=== PATIENT | male | born 1980 | race Caucasian/White ===

== ENCOUNTER 2017-05-13 20:43 | Inpatient (IN) | payer OTHER ==
--- NOTE | 2017-05-13 21:48 | PDOC ---
Rapid Medical Evaluation Chief Complaint: Respiratory Distress Time Seen by Provider: 05/13/17 21:43 Medical Evaluation: Allergies Allergy/AdvReac Type Severity Reaction Status Date / Time No Known Allergies Allergy Verified 05/13/17 21:44 05/13/17 21:44 I Have performed a brief in-person evaluation of this patient. c/o : pneumonia , cough and pain x right side, + night sweats, weightloss, fever x 1 month pertinent physical exam findings: Patient alert, fine rales on exam. I have ordered the following: blood culture, cbc, cmp, lactic acid The patient will proceed to the ED for further evaluation. 05/13/17 21:55
[2017-05-13 22:17] LABS: BASOPHIL 0.6 % (0-2.0); EOSINOPHIL 0.1 % (0-4.5); MCH 28.3 pg (25.7-33.7); MCHC 33.4 g/dl (32.0-35.9); MEAN CELL VOLUME 84.7 fl (80-96); MEAN PLT VOLUME 7.7 fl (7.5-11.1); NEUTROPHILS 87.3 % (42.8-82.8); PLATELET COUNT 381 K/MM3 (134-434); RDW 12.4 % (11.9-15.9); WHITE BLOOD COUNT 16.3 K/mm3 (4.0-10.0)
[2017-05-13 22:41] LABS: ALBUMIN 3.5 g/dl (3.4-5.0); ANION GAP 13 (8-16); CALCIUM 9.1 mg/dL (8.5-10.1); CO2 24 mmol/L (21-32); CREATININE 0.9 mg/dL (0.7-1.3); GLUCOSE,RANDOM 119 mg/dL (74-106); SGOT/AST 18 U/L (15-37); SGPT/ALT 48 U/L (12-78)
[2017-05-13 22:43] LABS: ALK PHOS 140 U/L (45-117); BILIRUBIN,TOTAL 0.7 mg/dL (0.2-1.0); TOT PROT 8.3 g/dl (6.4-8.2)
[2017-05-13] MEDS ORDERED: SODIUM CHLORIDE 0.9% 1000 ML INFUS.BAG IV STA (22:58)
[2017-05-13] MEDS ORDERED: SODIUM CHLORIDE 0.9% 1000 ML INFUS.BAG IV PRN (22:58)
[2017-05-13] MEDS ORDERED: ACETAMINOPHEN 1000 MG/100 ML VIAL (NON FORMULARY) IVPB ONE (23:03)
--- NOTE | 2017-05-13 23:20 | PDOC ---
History of Present Illness - General Chief Complaint: Respiratory Distress Stated Complaint: COLD SYMPTOMS Time Seen by Provider: 05/13/17 21:43 History Source: Patient - History of Present Illness Initial Comments: 05/13/17 23:15 36 year old male with Fever on and off for 1 month With cough and congestion, patient reports night sweats, increased cough and weight loss. Patient has completed courses of Zithromax and Levaquin with no relief in cough or fever. Patient reports that he was diagnosed with pneumonia by his primary doctor doctor. Denies hemoptysis, shortness of breath. Past History - Past Medical History Allergies/Adverse Reactions: Allergies Allergy/AdvReac Type Severity Reaction Status Date / Time No Known Allergies Allergy Verified 05/13/17 21:44 Home Medications: Ambulatory Orders NK [No Known Home Medication] 05/14/17 - Suicide/Smoking/Psychosocial Hx Smoking History: Never smoked Have you smoked in the past 12 months: No Information on smoking cessation initiated: No Hx Alcohol Use: Yes Drug/Substance Use Hx: No Review of Systems - Review of Systems Able to Perform ROS?: Yes Is the patient limited Vietnamese proficient: No Constitutional: Yes: Diaphoresis, Fever, Night Sweats, Unexplained wgt Loss Respiratory: Yes: Cough. No: Symptoms reported, See HPI, Orthopnea, Shortness of Breath, SOB with Exertion, SOB at Rest, Stridor, Wheezing, Productive cough, Hemoptysis, Other Cardiac (ROS): No: Symptoms Reported, See HPI, Chest Pain, Edema, Irregular Heart Rate, Lightheadedness, Palpitations, Syncope, Chest Tightness, Other ABD/GI: No: Symptoms Reported, See HPI, Abdominal Distended, Abd. Pain w/ defecation, Blood Streaked Bowels, Constipated, Diarrhea, Difficulty Swallowing , Nausea, Poor Appetite, Poor Fluid Intake, Rectal Bleeding, Vomiting, Indigestion, Abdominal cramping, Tarry Stools, Other : No: Symptoms Reported, See HPI, Burning, Dysuria, Discharge, Frequency, Flank Pain, Hematuria, Incontinence, Pain, Urgency, Testicular Mass, Testicular Swelling, Lesions, Testicular Pain, Other Neurological: No: Symptoms reported, See HPI, Headache, Numbness, Paresthesia, Pre-Existing Deficit, Seizure, Tingling, Tremors, Weakness, Unsteady Gait, Ataxia, Dizziness, Other *Physical Exam - Vital Signs Last Vital Signs Temp Pulse Resp BP Pulse Ox 103.1 F H 133 H 14 139/81 95 05/13/17 21:44 05/13/17 21:44 05/13/17 21:44 05/13/17 21:44 05/13/17 21:44 - Physical Exam General Appearance: Yes: Appropriately Dressed Respiratory/Chest: positive: Other (fine rales and decreased aeration to right posterior. ) Cardiovascular: positive: Regular Rhythm, Tachycardia Gastrointestinal/Abdominal: positive: Normal Bowel Sounds, Soft Extremity: positive: Normal Capillary Refill, Normal Inspection, Normal Range of Motion Integumentary: positive: Normal Color, Dry, Warm Neurologic: positive: Fully Oriented, Alert, Normal Mood/Affect ED Treatment Course - LABORATORY CBC & Chemistry Diagram: 05/15/17 05:10 05/15/17 05:10 - ADDITIONAL ORDERS Additional order review: Laboratory Results 05/13/17 05/13/17 22:00 22:00 Sodium 135 L Potassium 3.8 Chloride 98 Carbon Dioxide 24 Anion Gap 13 BUN 11 Creatinine 0.9 Creat Clearance w eGFR > 60 Random Glucose 119 H Lactic Acid 0.9 Calcium 9.1 Total Bilirubin 0.7 AST 18 ALT 48 Alkaline Phosphatase 140 H Total Protein 8.3 H Albumin 3.5 05/13/17 22:00 RBC 4.78 MCV 84.7 MCHC 33.4 RDW 12.4 MPV 7.7 Neutrophils % 87.3 H Lymphocytes % 6.4 L Monocytes % 5.6 Eosinophils % 0.1 Basophils % 0.6 - RADIOLOGY Radiology Studies Ordered: Category Date Time Status CHEST X-RAY PORTABLE* [RAD] Stat Radiology 05/13/17 22:58 Ordered Chest X-Ray Result: Pneumonia (right patchy infiltrates: official read pending) Medical Decision Making - Medical Decision Making 05/13/17 23:21 A: Pna vs. TB vs. sepsis P: blood culture cbc cmp lactic acid ABG ISOlate. 05/14/17 00:15 Dr. Glen Roberts pagenathan. 05/14/17 01:30 Dr. glen garza x3. Hospitalist messaged. 05/14/17 02:37 Dr. Salas covering for Dr. Alejandra garza. no answer. patient admitted under hospitalist. 05/14/17 03:33 patient signed out to Saray Miramontes [employer] TECHNICIAN *DC/Admit/Observation/Transfer Diagnosis at time of Disposition: SIRS (systemic inflammatory response syndrome) Pneumonia Qualifiers: Pneumonia type: due to unspecified organism Laterality: bilateral Lung location : lower lobe of lung Qualified Code(s): J18.9 - Pneumonia, unspecified organism - Discharge Dispostion Admit: Yes - Referrals - Patient Instructions - Post Discharge Activity
[2017-05-13] MEDS ORDERED: ACETAMINOPHEN INJECTION 100 ML IVPB ONE (23:38)
[2017-05-13 23:42] LABS: ARTERIAL BLD GAS O2 SATURATION 96.6 % (90-98.9); ARTERIAL BLOOD GAS BASE EXCESS 2.1 meq/l (-2-2); ARTERIAL BLOOD GAS HCO3 24.3 meq/L (22-26); ARTERIAL BLOOD GAS PO2 77.2 mmHg (80-100)
[2017-05-13 23:57] LABS: ALLENS TEST POSITIVE; ART PUNCT SITE RIGHT RADIAL; PT. ON O2? NO
[2017-05-14] MEDS ORDERED: VANCOMYCIN 1,250 MG in DEXTROSE 5%-WATER - 250 ML IVPB ONE (01:03)
[2017-05-14] MEDS ORDERED: PIPERACILLIN/TAZOB 4.5 GM/100 ML PRE-DOCKED IVPB ONE (01:15)
[2017-05-14] MEDS ORDERED: VANCOMYCIN 1 GRAM (PRE-DOCKED) 1,000 MG/250 ML BAG IVPB ONE (01:21)
[2017-05-14] MEDS ORDERED: PIPERACILLIN/TAZOB 4.5 GM 4.5 GM/100 ML BAG IVPB ONE (01:21)
[2017-05-14] MEDS ORDERED: ALBUTEROL SO4 2.5/IPRATROPIUM 0.5 INH SOL 3 ML VIAL.NEB. NEB ONE ×3 (03:20→09:39)
--- NOTE | 2017-05-14 03:36 | HP ---
CHIEF COMPLAINT: Cough, Fever, Night Sweats, Weight Loss PCP: Dr. Dior Roberts HISTORY OF PRESENT ILLNESS: This is a 36 y/o man with no significant PMHx. Who presents to the ED with fever , cough and congestion x 1 month. Patient also reports having night sweats and weight loss. He reports being treated by his PCP with Azithromycin and recently completed Levaquin with no resolve. Patient denies recent travel or exposure to sick contacts. He resides in a apartment with his S.O. in a monogamous heterosexual relationship. Patient reports having a PPD 2 weeks ago for work- result negative. Patient reports being tested for HIV routine earlier this year - negative. He is unsure about his Hep B vaccine status. Patient denies CP, AP, N/V/D, constipation, dysuria ER course was notable for: (1) SIRS Criteria: T Max 103.1, P 133, WBC 16.3 with L shift (2) Chest Xray image- patchy infiltrates (3) Recent Travel: None PAST MEDICAL HISTORY: None PAST SURGICAL HISTORY: None Social History: Smoking: Never Alcohol: Socially Drugs: Denies Lives with S.O. Family History: Allergies No Known Allergies Allergy (Verified 05/13/17 21:44) HOME MEDICATIONS: REVIEW OF SYSTEMS CONSTITUTIONAL: fever, chills, malaise, weight change, night sweats Absent: diaphoresis, generalized weakness, loss of appetite, HEENT: Absent: rhinorrhea, nasal congestion, throat pain, throat swelling, difficulty swallowing, mouth swelling, ear pain, eye pain, visual changes CARDIOVASCULAR: Absent: chest pain, syncope, palpitations, irregular heart rate, lightheadedness , peripheral edema RESPIRATORY: cough, Absent: shortness of breath, dyspnea with exertion, orthopnea, wheezing, stridor , hemoptysis GASTROINTESTINAL: Absent: abdominal pain, abdominal distension, nausea, vomiting, diarrhea, constipation, melena, hematochezia GENITOURINARY: Absent: dysuria, frequency, urgency, hesitancy, hematuria, flank pain, genital pain MUSCULOSKELETAL: Absent: myalgia, arthralgia, joint swelling, back pain, neck pain SKIN: Absent: rash, itching, pallor HEMATOLOGIC/IMMUNOLOGIC: Absent: easy bleeding, easy bruising, lymphadenopathy, frequent infections ENDOCRINE:unexplained weight loss Absent: unexplained weight gain, heat intolerance, cold intolerance NEUROLOGIC: Absent: headache, focal weakness or paresthesias, dizziness, unsteady gait, seizure, mental status changes, bladder or bowel incontinence PSYCHIATRIC: Absent: anxiety, depression, suicidal or homicidal ideation, hallucinations. PHYSICAL EXAMINATION Vital Signs - 24 hr 05/13/17 21:44 Temperature 103.1 F H Pulse Rate 133 H Respiratory 14 Rate Blood Pressure 139/81 O2 Sat by Pulse 95 Oximetry (%) GENERAL: Awake, alert, and fully oriented, in no acute distress. HEAD: Normal with no signs of trauma. EYES: Pupils equal, round and reactive to light, extraocular movements intact, sclera anicteric, conjunctiva clear. No lid lag. EARS, NOSE, THROAT: Ears normal, nares patent, oropharynx clear without exudates . Dry mucous membranes. NECK: Normal range of motion, supple without lymphadenopathy, JVD, or masses. No nuchal rigidity LUNGS: Breath sounds diminished at bases, with scattered wheeze. No accessory muscle use. HEART: Regular rate and rhythm, normal S1 and S2 without murmur, rub or gallop. ABDOMEN: Soft, nontender, not distended, normoactive bowel sounds, no guarding, no rebound, no masses. No hepatomegaly or splenomegaly. MUSCULOSKELETAL: Normal range of motion at all joints. No bony deformities or tenderness. No CVA tenderness. UPPER EXTREMITIES: 2+ pulses, warm, well-perfused. No cyanosis. No clubbing. No peripheral edema. LOWER EXTREMITIES: 2+ pulses, warm, well-perfused. No calf tenderness. No peripheral edema. NEUROLOGICAL: Cranial nerves II-XII intact. Normal speech. Normal gait. PSYCHIATRIC: Cooperative. Good eye contact. Appropriate mood and affect. SKIN: Warm, dry, normal turgor, no rashes or lesions noted, normal capillary refill. Laboratory Results - last 24 hr 05/13/17 05/13/17 05/13/17 22:00 22:00 22:00 WBC 16.3 H RBC 4.78 Hgb 13.5 Hct 40.5 MCV 84.7 MCH 28.3 MCHC 33.4 RDW 12.4 Plt Count 381 MPV 7.7 Neutrophils % 87.3 H Lymphocytes % 6.4 L Monocytes % 5.6 Eosinophils % 0.1 Basophils % 0.6 Anticoagulation Therapy Puncture Site ABG pH ABG pCO2 at Pt Temp ABG pO2 at Pt Temp ABG HCO3 ABG O2 Sat (Measured) ABG O2 Content ABG Base Excess Adolph Test O2 Delivery Device Oxygen Flow Rate Vent Mode Vent Rate Mechanical Rate Pressure Support Vent Sodium 135 L Potassium 3.8 Chloride 98 Carbon Dioxide 24 Anion Gap 13 BUN 11 Creatinine 0.9 Creat Clearance w eGFR > 60 Random Glucose 119 H Lactic Acid 0.9 Calcium 9.1 Total Bilirubin 0.7 AST 18 ALT 48 Alkaline Phosphatase 140 H Total Protein 8.3 H Albumin 3.5 05/13/17 23:25 WBC RBC Hgb Hct MCV MCH MCHC RDW Plt Count MPV Neutrophils % Lymphocytes % Monocytes % Eosinophils % Basophils % Anticoagulation Therapy Y Puncture Site Right radial ABG pH 7.50 H ABG pCO2 at Pt Temp 31.4 L ABG pO2 at Pt Temp 77.2 L ABG HCO3 24.3 ABG O2 Sat (Measured) 96.6 ABG O2 Content 17.8 ABG Base Excess 2.1 H Adolph Test Positive O2 Delivery Device Y Oxygen Flow Rate No Vent Mode Y Vent Rate Y Mechanical Rate Y Pressure Support Vent Y Sodium Potassium Chloride Carbon Dioxide Anion Gap BUN Creatinine Creat Clearance w eGFR Random Glucose Lactic Acid Calcium Total Bilirubin AST ALT Alkaline Phosphatase Total Protein Albumin ASSESSMENT/PLAN: This is a 36 y.o man with no past medical history presents to ED with fever, cough, weight loss x 1 month, Failed Out Patient Therapy ABX. Admit to M/S SIRS , Pneumonia, r/o TB for further evaluation of their emergent condition. FEN Tolerates PO Fluids Replete lytes prn Regular Diet Code Status: Full Code Dispo: Requires Inpatient Care Problem List - Problem (1) SIRS (systemic inflammatory response syndrome) Assessment/Plan: - r/o Pneumonia vs TB vs Neoplasm - T Max 103.1, P 133, WBC 16.3 - Blood Cultures-pending - Urine Culture-pending - Sputum Culture - AFB r/o TB - Isolation Precautions- airborne - PPD test - Zosyn, Vancomycin, NS bolus given in ED, will continue - Appreciate ID Consult - Repeat CBC, BMP in am - Monitor vitals Code(s): R65.10 - SIRS OF NON-INFECTIOUS ORIGIN W/O ACUTE ORGAN DYSFUNCTION (2) Pneumonia Assessment/Plan: - Failed Outpatient Therapy - Will treat for CAP - Chest Xray image- patchy bilateral infiltrates - Given Zosyn, Vancomycin in ED, will continue for broad spectrum coverage- pending BC reports - Appreciate ID and Pulm consults - O2 - Duonebs - Urine Legionella - Monitor vitals Code(s): J18.9 - PNEUMONIA, UNSPECIFIED ORGANISM Qualifiers: Pneumonia type: due to unspecified organism Laterality: bilateral Lung location: lower lobe of lung Qualified Code(s): J18.9 - Pneumonia, unspecified organism (3) DVT prophylaxis Assessment/Plan: - OOB - Heparin SQ Code(s): [id number] - Visit type - Emergency Visit Emergency Visit: Yes ED Registration Date: 05/14/17 Care time: The patient presented to the Emergency Department on the above date and was hospitalized for further evaluation of their emergent condition. - New Patient This patient is new to me today: Yes Date on this admission: 05/14/17 - Critical Care Critical Care patient: No
[2017-05-14 06:20] LABS: TROPONIN I < 0.02 ng/ml (0.00-0.05)
[2017-05-14] MEDS: HEPARIN NA (PORCINE) 5,000 UNITS/ML 1ML VIAL SQ SCH ×3 (07:06→21:57)
[2017-05-14 07:43] LABS: CPK 105 IU/L (39-308)
[2017-05-14] MEDS ORDERED: ACETAMINOPHEN 325 MG TABLET (FP) ONE (09:38)
[2017-05-14] MEDS: ACETAMINOPHEN 325 MG TABLET (FP) PO PRN ×2 (09:55→17:41)
[2017-05-14] MEDS: ALBUTEROL SO4 2.5/IPRATROPIUM 0.5 INH SOL 3 ML VIAL.NEB. NEB PRN (09:55)
[2017-05-14] MEDS ORDERED: PIPERACILLIN/TAZOB 4.5 GM 4.5 GM in DEXTROSE 5%-WATER - 100 ML IVPB ONE (10:00)
--- NOTE | 2017-05-14 11:33 | CON.ID ---
Consult Consult Specialty:: infectious diseases Reason for Consultation:: cough pneumonia - History of Present Illness Chief Complaint: cough.sob History of Present Illness: 36 y/o man with no significant PMHx. Who presents to the ED with fever, cough and congestion x 1 month. Patient also reports having night sweats and weight loss. He reports being treated by his PCP with Azithromycin and recently completed Levaquin with no resolve. patient is from [facility] originally and is a traveling construction superintendent . He is a non smoker and denies drugs. Paient mentions that he is having scant sputum production and no hemoptysis' Patient reports being tested for HIV routine earlier this year- negative. He is unsure about his Hep B vaccine status. He does not know that if he had ppd done before - History Source History Provided By: Patient Limitations to Obtaining History: No Limitations - Alcohol/Substance Use Hx Alcohol Use: Yes - Smoking History Smoking history: Never smoked Have you smoked in the past 12 months: No Home Medications - Allergies Allergies/Adverse Reactions: Allergies Allergy/AdvReac Type Severity Reaction Status Date / Time No Known Allergies Allergy Verified 05/13/17 21:44 - Home Medications Home Medications: Ambulatory Orders NK [No Known Home Medication] 05/14/17 Review of Systems - Review of Systems Constitutional: reports: Unintentional Wgt. Loss, Other (sweats) Eyes: reports: No Symptoms Cardiovascular: reports: No Symptoms Respiratory: reports: Cough, Other Gastrointestinal: reports: No Symptoms Genitourinary: reports: No Symptoms Musculoskeletal: reports: No Symptoms Integumentary: reports: No Symptoms Neurological: reports: No Symptoms Endocrine: reports: No Symptoms Hematology/Lymphatic: reports: No Symptoms Psychiatric: reports: No Symptoms Physical Exam Vital Signs: Vital Signs Temperature 101.7 F H 05/14/17 09:56 Pulse Rate 102 H 05/14/17 09:56 Respiratory Rate 18 05/14/17 09:56 Blood Pressure 129/89 05/14/17 09:56 O2 Sat by Pulse Oximetry (%) 98 05/14/17 09:56 Constitutional: Yes: Well Nourished, Calm, Mild Distress Eyes: Yes: Conjunctiva Clear HENT: Yes: Atraumatic Neck: Yes: Supple, Trachea Midline Cardiovascular: Yes: Regular Rate and Rhythm Respiratory: Yes: Cough, On Nasal O2, Rhonchi, SOB Gastrointestinal: Yes: Normal Bowel Sounds, Soft Musculoskeletal: Yes: WNL Extremities: Yes: WNL Neurological: Yes: Alert, Oriented Psychiatric: Yes: Alert, Oriented Labs: CBC, BMP 05/13/17 22:00 05/13/17 22:00 Imaging - Results Chest X-ray: Report Reviewed, Image Reviewed Assessment/Plan patient wiht his back ground needs work up of Tb which already has been intitated sputum being send also patient has failed out patient treatment Problem List - Problems (1) Pneumonia Code(s): J18.9 - PNEUMONIA, UNSPECIFIED ORGANISM Qualifiers: Pneumonia type: due to unspecified organism Laterality: bilateral Lung location: lower lobe of lung Qualified Code(s): J18.9 - Pneumonia, unspecified organism (2) SIRS (systemic inflammatory response syndrome) Code(s): R65.10 - SIRS OF NON-INFECTIOUS ORIGIN W/O ACUTE ORGAN DYSFUNCTION plan will start on abx incentive fabiola ct scan await for all reports rest as per primary team
[2017-05-14] MEDS ORDERED: PIPERACILLIN/TAZOB 3.375 GM 3.375 GM/50 ML BAG IVPB ONE (11:49)
[2017-05-14] MEDS: PIPERACILLIN/TAZOB 3.375 GM 3.375 GM in DEXTROSE 5%-WATER - 50 ML IVPB SCH ×2 (12:17→17:41)
[2017-05-14] MEDS ORDERED: VANCOMYCIN 1,000 MG in DEXTROSE 5%-WATER - 250 ML IVPB ONE ×2 (13:00→15:30)
[2017-05-14] MEDS ORDERED: PNEUMOC 13-VAL CONJ-DIP CRM/PF 0.5 ML DISP.SYRIN IM ONE (14:00)
[2017-05-14 14:07] VITALS: BMI 30.4
[2017-05-14] MEDS ORDERED: PIPERACILLIN/TAZOB 4.5 GM/100 ML PREMIX BAG IVPB SCH (15:00)
[2017-05-15] MEDS ORDERED: PT OWN MED DRAWER 7, Y5N ONE ×4 (01:26→17:45)
[2017-05-15] MEDS: PIPERACILLIN/TAZOB 3.375 GM 3.375 GM in DEXTROSE 5%-WATER - 50 ML IVPB SCH ×3 (01:38→17:18)
[2017-05-15] MEDS: ACETAMINOPHEN 325 MG TABLET (FP) PO PRN ×3 (01:48→16:54)
[2017-05-15] MEDS: HEPARIN NA (PORCINE) 5,000 UNITS/ML 1ML VIAL SQ SCH ×3 (06:04→21:45)
[2017-05-15 07:08] LABS: BASOPHIL 0.8 % (0-2.0); MCH 28.2 pg (25.7-33.7); MCHC 32.9 g/dl (32.0-35.9); MEAN CELL VOLUME 85.8 fl (80-96); NEUTROPHILS 71.3 % (42.8-82.8); PLATELET COUNT 274 K/MM3 (134-434); RDW 12.5 % (11.9-15.9); WHITE BLOOD COUNT 8.7 K/mm3 (4.0-10.0)
[2017-05-15 07:41] LABS: ALBUMIN 2.9 g/dl (3.4-5.0); ANION GAP 11 (8-16); CALCIUM 9.2 mg/dL (8.5-10.1); CO2 25 mmol/L (21-32); CREATININE 0.8 mg/dL (0.7-1.3); GLUCOSE,RANDOM 93 mg/dL (74-106); SGOT/AST 28 U/L (15-37); SGPT/ALT 50 U/L (12-78)
[2017-05-15 07:44] LABS: ALK PHOS 137 U/L (45-117); BILIRUBIN,TOTAL 0.4 mg/dL (0.2-1.0)
--- NOTE | 2017-05-15 10:14 | CON.PULM ---
Consult Consult Specialty:: PULMONARY Referred by:: FELIPE Reason for Consultation:: PNEUMONIA - History of Present Illness Chief Complaint: COUGH/FEVER/WEIGHT LOSS History of Present Illness: 36 year old male with Fever on and off for 1 month With cough and congestion, patient reports night sweats, increased cough and weight loss. Patient has completed courses of Zithromax and Levaquin with no relief in cough or fever. Patient reports that he was diagnosed with pneumonia by his primary doctor doctor. Denies hemoptysis, shortness of breath. No sick contacts. 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 Cardio/Vascular: No: AFIB Pulmonary: No: Asthma Gastrointestinal: No: Ascites Hepatobiliary: No: Cirrhosis Renal/: No: Renal Failure Heme/Onc: No: Anemia Infectious Disease: No: AIDS Psych: No: Addictions Musculoskeletal: No: Bursitis Rheumatology: No: Fibromyalgia ENT: No: Allergic Rhinitis Endocrine: No: Licking's Disease - Alcohol/Substance Use Hx Alcohol Use: Yes - Smoking History Smoking history: Never smoked Have you smoked in the past 12 months: No Home Medications - Allergies Allergies/Adverse Reactions: Allergies Allergy/AdvReac Type Severity Reaction Status Date / Time No Known Allergies Allergy Verified 05/13/17 21:44 - Home Medications Home Medications: Ambulatory Orders NK [No Known Home Medication] 05/14/17 Family Disease History - Family Disease History Family History: Unremarkable Review of Systems - Review of Systems Constitutional: reports: Chills, Diaphoresis, Fever, Unintentional Wgt. Loss Cardiovascular: denies: Chest Pain Respiratory: reports: Cough, SOB on Exertion. denies: Hemoptysis Physical Exam Vital Sings: Vital Signs Temperature 102.6 F H 05/15/17 02:10 Pulse Rate 104 H 05/15/17 02:10 Respiratory Rate 20 05/15/17 02:10 Blood Pressure 122/71 05/15/17 02:10 O2 Sat by Pulse Oximetry (%) 97 05/14/17 22:00 Constitutional: Yes: Calm Eyes: Yes: EOM Intact HENT: Yes: Normocephalic Neck: Yes: Trachea Midline Cardiovascular: Yes: Regular Rate and Rhythm Respiratory: Yes: Rhonchi Gastrointestinal: Yes: Normal Bowel Sounds Edema: No Labs: CBC, BMP 05/15/17 05:10 11/18/17 05:10 ABG Results ABG pH 7.50 (7.35-7.45) H 05/13/17 23:25 ABG pCO2 at Pt Temp 31.4 mmHg (35-45) L 05/13/17 23:25 ABG pO2 at Pt Temp 77.2 mmHg (80-100) L 05/13/17 23:25 ABG HCO3 24.3 meq/L (22-26) 05/13/17 23:25 ABG O2 Sat (Measured) 96.6 % (90-98.9) 05/13/17 23:25 ABG O2 Content 17.8 % vol (15-22) 05/13/17 23:25 ABG Base Excess 2.1 meq/l (-2-2) H 05/13/17 23:25 rest reviewed Imaging - Results Chest X-ray: Report Reviewed, Image Reviewed Problem List - Problems (1) Pneumonia Code(s): J18.9 - PNEUMONIA, UNSPECIFIED ORGANISM Qualifiers: Pneumonia type: due to unspecified organism Laterality: bilateral Lung location: lower lobe of lung Qualified Code(s): J18.9 - Pneumonia, unspecified organism (2) SIRS (systemic inflammatory response syndrome) Code(s): R65.10 - SIRS OF NON-INFECTIOUS ORIGIN W/O ACUTE ORGAN DYSFUNCTION Assessment/Plan CABP likely however must r/o acid fast disease agree with current line of treatment have ordered urine antigens/sputum gram stain/quant gold/would replant ppd continue isolation and antibiotics may need ct chest when clinically stable Consuelo MAGALLANES MD
--- NOTE | 2017-05-15 11:56 | PN ---
Progress Note, Physician Chief Complaint: awake alert family bedsid ewith masks on patient coughing explained he was in [place] and lived in [place] for 6 months where he was surrounded by very sick people. - Current Medication List Current Medications: Active Medications Acetaminophen (Tylenol -) 650 mg PO Q6H PRN PRN Reason: FEVER OR PAIN Last Admin: 05/15/17 01:48 Dose: 650 mg Albuterol/Ipratropium (Duoneb -) 1 amp NEB Q6H PRN PRN Reason: SHORTNESS OF BREATH Last Admin: 05/14/17 09:55 Dose: 1 amp Heparin Sodium (Porcine) (Heparin -) 5,000 unit SQ TID ELIZABETH Last Admin: 05/15/17 06:04 Dose: 5,000 unit Vancomycin HCl 1,000 mg/ (Dextrose) 250 mls @ 200 mls/hr IVPB Q12H ELIZABETH Piperacillin Sod/Tazobactam (Sod 3.375 gm/ Dextrose) 50 mls @ 100 mls/hr IVPB Q8H-IV ELIZABETH PRN Reason: Protocol Last Admin: 05/15/17 09:59 Dose: 100 mls/hr Sodium Chloride (Normal Saline -) 200 ml IV Q20M PRN PRN Reason: MAP<65mm Hg OR SBP <90 Last Admin: 05/14/17 01:19 Dose: 200 ml - Objective Vital Signs: Vital Signs Temperature 100.6 F H 05/15/17 10:00 Pulse Rate 100 H 05/15/17 10:00 Respiratory Rate 20 05/15/17 10:00 Blood Pressure 116/83 05/15/17 10:00 O2 Sat by Pulse Oximetry (%) 97 05/15/17 10:00 Constitutional: Yes: Mild Distress Eyes: Yes: WNL HENT: Yes: WNL Neck: Yes: WNL Cardiovascular: Yes: WNL Respiratory: Yes: Cough, Wheezes Gastrointestinal: Yes: WNL Genitourinary: Yes: WNL Musculoskeletal: Yes: WNL Extremities: Yes: WNL Edema: No Peripheral Pulses WNL: Yes Integumentary: Yes: WNL Wound/Incision: Yes: Clean/Dry Neurological: Yes: WNL ...Motor Strength: WNL Psychiatric: Yes: WNL Labs: CBC, BMP 05/15/17 05:10 05/15/17 05:10 Problem List - Problems (1) Pneumonia Code(s): J18.9 - PNEUMONIA, UNSPECIFIED ORGANISM Qualifiers: Pneumonia type: due to unspecified organism Laterality: bilateral Lung location: lower lobe of lung Qualified Code(s): J18.9 - Pneumonia, unspecified organism (2) SIRS (systemic inflammatory response syndrome) Code(s): R65.10 - SIRS OF NON-INFECTIOUS ORIGIN W/O ACUTE ORGAN DYSFUNCTION Assessment/Plan KEEP ON ISOLATION NEBS 02 SUPPORT PULMONARY AND ID FOLLOW UP CHECKING AFB SPUTUM PPD ORDERED CT SCAN WHEN STABLE IV ABX
[2017-05-15] MEDS ORDERED: TUBERCULIN PPD 5 TU/0.1ML SYRINGE (IN PATIENT USE ONLY) ID ONE (14:45)
--- NOTE | 2017-05-15 17:05 | PN ---
Progress Note, Physician History of Present Illness: stable mentions he is producing more sputum today says coughing episodes more and worse - Current Medication List Current Medications: Active Medications Acetaminophen (Tylenol -) 650 mg PO Q6H PRN PRN Reason: FEVER OR PAIN Last Admin: 05/15/17 01:48 Dose: 650 mg Albuterol/Ipratropium (Duoneb -) 1 amp NEB Q6H PRN PRN Reason: SHORTNESS OF BREATH Last Admin: 05/14/17 09:55 Dose: 1 amp Heparin Sodium (Porcine) (Heparin -) 5,000 unit SQ TID ELIZABETH Last Admin: 05/15/17 14:48 Dose: 5,000 unit Vancomycin HCl 1,000 mg/ (Dextrose) 250 mls @ 200 mls/hr IVPB Q12H ELIZABETH Piperacillin Sod/Tazobactam (Sod 3.375 gm/ Dextrose) 50 mls @ 100 mls/hr IVPB Q8H-IV ELIZABETH PRN Reason: Protocol Last Admin: 05/15/17 09:59 Dose: 100 mls/hr Sodium Chloride (Normal Saline -) 200 ml IV Q20M PRN PRN Reason: MAP<65mm Hg OR SBP <90 Last Admin: 05/14/17 01:19 Dose: 200 ml - Objective Vital Signs: Vital Signs Temperature 98.3 F 05/15/17 15:46 Pulse Rate 80 05/15/17 15:46 Respiratory Rate 20 05/15/17 15:46 Blood Pressure 134/69 05/15/17 15:46 O2 Sat by Pulse Oximetry (%) 97 05/15/17 10:00 Constitutional: Yes: Mild Distress Cardiovascular: Yes: Regular Rate and Rhythm Respiratory: Yes: Cough, Rhonchi Gastrointestinal: Yes: Normal Bowel Sounds, Soft Musculoskeletal: Yes: WNL Extremities: Yes: WNL Neurological: Yes: Alert, Oriented Psychiatric: Yes: Alert, Oriented Labs: CBC, BMP 05/15/17 05:10 05/15/17 05:10 Assessment/Plan ppd placed Problem List - Problems (1) Pneumonia Code(s): J18.9 - PNEUMONIA, UNSPECIFIED ORGANISM Qualifiers: Pneumonia type: due to unspecified organism Laterality: bilateral Lung location: lower lobe of lung Qualified Code(s): J18.9 - Pneumonia, unspecified organism (2) SIRS (systemic inflammatory response syndrome) Code(s): R65.10 - SIRS OF NON-INFECTIOUS ORIGIN W/O ACUTE ORGAN DYSFUNCTION plan continue abx incentive fabiola ct scan await for all reports rest as per primary team
[2017-05-15] MEDS: VANCOMYCIN 1,250 MG in DEXTROSE 5%-WATER - 250 ML IVPB SCH (17:55)
[2017-05-16] MEDS: ALBUTEROL SO4 2.5/IPRATROPIUM 0.5 INH SOL 3 ML VIAL.NEB. NEB PRN (00:44)
[2017-05-16] MEDS ORDERED: PT OWN MED DRAWER 7, Y5N ONE ×2 (00:59→16:46)
[2017-05-16] MEDS: PIPERACILLIN/TAZOB 3.375 GM 3.375 GM in DEXTROSE 5%-WATER - 50 ML IVPB SCH ×3 (01:01→17:43)
[2017-05-16] MEDS: HEPARIN NA (PORCINE) 5,000 UNITS/ML 1ML VIAL SQ SCH ×3 (06:05→21:20)
--- NOTE | 2017-05-16 11:10 | PN ---
Progress Note, Physician Chief Complaint: AWAKE ALERT COUGHING - Current Medication List Current Medications: Active Medications Acetaminophen (Tylenol -) 650 mg PO Q6H PRN PRN Reason: FEVER OR PAIN Last Admin: 05/15/17 16:54 Dose: 650 mg Albuterol/Ipratropium (Duoneb -) 1 amp NEB Q6H PRN PRN Reason: SHORTNESS OF BREATH Last Admin: 05/16/17 00:44 Dose: 1 amp Heparin Sodium (Porcine) (Heparin -) 5,000 unit SQ TID [facility] Last Admin: 05/16/17 06:05 Dose: 5,000 unit Piperacillin Sod/Tazobactam (Sod 3.375 gm/ Dextrose) 50 mls @ 100 mls/hr IVPB Q8H-IV [facility] PRN Reason: Protocol Last Admin: 05/16/17 01:01 Dose: 100 mls/hr Vancomycin HCl 1,250 mg/ (Dextrose) 250 mls @ 250 mls/hr IVPB DAILY@1800 [facility] PRN Reason: Protocol Last Admin: 05/15/17 17:55 Dose: 250 mls/hr Sodium Chloride (Normal Saline -) 200 ml IV Q20M PRN PRN Reason: MAP<65mm Hg OR SBP <90 Last Admin: 05/14/17 01:19 Dose: 200 ml - Objective Vital Signs: Vital Signs Temperature 99.1 F 05/16/17 01:43 Pulse Rate 107 H 05/16/17 01:43 Respiratory Rate 20 05/16/17 01:43 Blood Pressure 120/69 05/16/17 01:43 O2 Sat by Pulse Oximetry (%) 95 05/15/17 21:00 Constitutional: Yes: Mild Distress Eyes: Yes: WNL HENT: Yes: WNL Neck: Yes: WNL Cardiovascular: Yes: WNL Respiratory: Yes: Cough, Rhonchi Gastrointestinal: Yes: WNL Genitourinary: Yes: WNL Musculoskeletal: Yes: WNL Extremities: Yes: WNL Edema: No Peripheral Pulses WNL: Yes Integumentary: Yes: WNL Wound/Incision: Yes: Clean/Dry Neurological: Yes: WNL ...Motor Strength: WNL Psychiatric: Yes: WNL Labs: CBC, BMP 05/15/17 05:10 05/15/17 05:10 Problem List - Problems (1) Pneumonia Code(s): J18.9 - PNEUMONIA, UNSPECIFIED ORGANISM Qualifiers: Pneumonia type: due to unspecified organism Laterality: bilateral Lung location: lower lobe of lung Qualified Code(s): J18.9 - Pneumonia, unspecified organism (2) SIRS (systemic inflammatory response syndrome) Code(s): R65.10 - SIRS OF NON-INFECTIOUS ORIGIN W/O ACUTE ORGAN DYSFUNCTION Assessment/Plan KEEP ON ISOLATION NEBS 02 SUPPORT PULMONARY AND ID FOLLOW UP CHECKING AFB SPUTUM PPD ORDERED CT SCAN WHEN STABLE IV ABX
--- NOTE | 2017-05-16 12:05 | PN ---
Progress Note (short form) - Note Progress Note: PULMONARY CONGESTED COUGH/TEMPS DOWN TRENDING NO CHANGE IN EXAM URINE AG NEGATIVE SPUTUMS PENDING CABP likely however must r/o acid fast disease agree with current line of treatment /quant gold/ ppd no erythema or induration after 24 hrs/final read 48-72 hrs continue isolation and antibiotics ct chest when tbc ruled out Consuelo MAGALLANES MD Problem List - Problems (1) Pneumonia Code(s): J18.9 - PNEUMONIA, UNSPECIFIED ORGANISM Qualifiers: Pneumonia type: due to unspecified organism Laterality: bilateral Lung location: lower lobe of lung Qualified Code(s): J18.9 - Pneumonia, unspecified organism (2) SIRS (systemic inflammatory response syndrome) Code(s): R65.10 - SIRS OF NON-INFECTIOUS ORIGIN W/O ACUTE ORGAN DYSFUNCTION
[2017-05-16] MEDS: VANCOMYCIN 1,250 MG in DEXTROSE 5%-WATER - 250 ML IVPB SCH (17:27)
[2017-05-17] MEDS: guaiFENesin/CODEINE 5 ML UNIT-DOSE CUPS PO PRN ×4 (00:18→23:07)
[2017-05-17] MEDS ORDERED: PT OWN MED DRAWER 7, Y5N ONE ×2 (02:11→09:07)
[2017-05-17] MEDS: PIPERACILLIN/TAZOB 3.375 GM 3.375 GM in DEXTROSE 5%-WATER - 50 ML IVPB SCH ×5 (02:26→18:50)
[2017-05-17] MEDS: HEPARIN NA (PORCINE) 5,000 UNITS/ML 1ML VIAL SQ SCH ×3 (06:12→23:02)
--- NOTE | 2017-05-17 09:09 | PN ---
Progress Note, Physician History of Present Illness: C/O COUGH - Current Medication List Current Medications: Active Medications Acetaminophen (Tylenol -) 650 mg PO Q6H PRN PRN Reason: FEVER OR PAIN Last Admin: 05/15/17 16:54 Dose: 650 mg Albuterol/Ipratropium (Duoneb -) 1 amp NEB Q6H PRN PRN Reason: SHORTNESS OF BREATH Last Admin: 05/16/17 00:44 Dose: 1 amp Guaifenesin/Codeine Phosphate (Robitussin Ac -) 10 ml PO Q6H PRN Last Admin: 05/17/17 06:12 Dose: 10 ml Heparin Sodium (Porcine) (Heparin -) 5,000 unit SQ TID [facility] Last Admin: 05/17/17 06:12 Dose: 5,000 unit Piperacillin Sod/Tazobactam (Sod 3.375 gm/ Dextrose) 50 mls @ 100 mls/hr IVPB Q8H-IV [facility] PRN Reason: Protocol Last Admin: 05/17/17 02:26 Dose: 100 mls/hr Vancomycin HCl 1,250 mg/ (Dextrose) 250 mls @ 250 mls/hr IVPB DAILY@1800 [facility] PRN Reason: Protocol Last Admin: 05/16/17 17:27 Dose: 250 mls/hr Sodium Chloride (Normal Saline -) 200 ml IV Q20M PRN PRN Reason: MAP<65mm Hg OR SBP <90 Last Admin: 05/14/17 01:19 Dose: 200 ml - Objective Vital Signs: Vital Signs Temperature 98.4 F 05/17/17 06:00 Pulse Rate 78 05/17/17 06:00 Respiratory Rate 20 05/17/17 08:27 Blood Pressure 118/78 05/17/17 06:00 O2 Sat by Pulse Oximetry (%) 95 05/17/17 08:27 Cardiovascular: Yes: Regular Rate and Rhythm Respiratory: Yes: Rhonchi Gastrointestinal: Yes: Normal Bowel Sounds, Soft Labs: CBC, BMP 05/15/17 05:10 05/15/17 05:10 Assessment/Plan (1) SIRS (systemic inflammatory response syndrome) Assessment/Plan: - r/o Pneumonia vs TB vs Neoplasm - AFEBRILE NOW - Blood Cultures-pending - Urine Culture-pending Microbiology 05/17/17 07:00 Sputum - Expectorated AFB Smear Concentration - Preliminary 05/17/17 07:00 Sputum - Expectorated Mycobacterial Culture - Preliminary 05/16/17 11:47 Sputum - Expectorated AFB Smear Concentration - Preliminary 05/15/17 07:40 Sputum - Expectorated AFB Smear Concentration - Preliminary 05/13/17 20:45 Blood - Peripheral Venous Blood Culture - Preliminary NO GROWTH OBTAINED AFTER 72 HOURS, INCUBATION TO CONTINUE FOR 2 DAYS. 05/13/17 21:00 Blood - Peripheral Venous Blood Culture - Preliminary NO GROWTH OBTAINED AFTER 72 HOURS, INCUBATION TO CONTINUE FOR 2 DAYS. 05/15/17 10:30 Sputum - Expectorated Gram Stain - Final 05/15/17 10:30 Sputum - Expectorated Sputum Culture - Preliminary NORMAL RESPIRATORY ALICIA 05/14/17 17:58 Urine - Urine Clean Catch Urine Culture - Final NO GROWTH OBTAINED 05/15/17 10:45 Urine - Urine Clean Catch Legionella Antigen - Final 05/15/17 10:45 Urine - Urine Clean Catch Streptococcus pneumoniae Antigen ( M - Final - Sputum Culture - AFB r/o TB - Isolation Precautions- airborne - PPD test NEGATIVE - Zosyn, Vancomycin, NS bolus given in ED, will continue - Appreciate ID Consult - Repeat CBC, BMP in am - Monitor vitals Code(s): R65.10 - SIRS OF NON-INFECTIOUS ORIGIN W/O ACUTE ORGAN DYSFUNCTION (2) Pneumonia Assessment/Plan: - Failed Outpatient Therapy - Will treat for CAP - Chest Xray image- patchy bilateral infiltrates - Given Zosyn, Vancomycin in ED, will continue for broad spectrum coverage- pending BC reports - Appreciate ID and Pulm consults - O2 - Duonebs - Urine Legionella - Monitor vitals Code(s): J18.9 - PNEUMONIA, UNSPECIFIED ORGANISM Qualifiers: Pneumonia type: due to unspecified organism Laterality: bilateral Lung location: lower lobe of lung Qualified Code(s): J18.9 - Pneumonia, unspecified organism (3) DVT prophylaxis Assessment/Plan: - OOB - Heparin SQ Code(s): [id number] -
[2017-05-17] MEDS: ALBUTEROL SO4 2.5/IPRATROPIUM 0.5 INH SOL 3 ML VIAL.NEB. NEB SCH ×2 (11:05→17:25)
--- NOTE | 2017-05-17 12:39 | PN ---
Progress Note, Physician History of Present Illness: pulmonary alert nad,+cough - Current Medication List Current Medications: Active Medications Acetaminophen (Tylenol -) 650 mg PO Q6H PRN PRN Reason: FEVER OR PAIN Last Admin: 05/15/17 16:54 Dose: 650 mg Albuterol/Ipratropium (Duoneb -) 1 amp NEB QIDR [facility] Guaifenesin/Codeine Phosphate (Robitussin Ac -) 10 ml PO Q6H PRN Heparin Sodium (Porcine) (Heparin -) 5,000 unit SQ TID [facility] Last Admin: 05/17/17 06:12 Dose: 5,000 unit Piperacillin Sod/Tazobactam (Sod 3.375 gm/ Dextrose) 50 mls @ 100 mls/hr IVPB Q8H-IV [facility] PRN Reason: Protocol Last Admin: 05/17/17 02:26 Dose: 100 mls/hr Vancomycin HCl 1,250 mg/ (Dextrose) 250 mls @ 250 mls/hr IVPB DAILY@1800 [facility] PRN Reason: Protocol Last Admin: 05/16/17 17:27 Dose: 250 mls/hr Sodium Chloride (Normal Saline -) 200 ml IV Q20M PRN PRN Reason: MAP<65mm Hg OR SBP <90 Last Admin: 05/14/17 01:19 Dose: 200 ml - Objective Vital Signs: Vital Signs Temperature 98.4 F 05/17/17 06:00 Pulse Rate 78 05/17/17 06:00 Respiratory Rate 20 05/17/17 08:27 Blood Pressure 118/78 05/17/17 06:00 O2 Sat by Pulse Oximetry (%) 95 05/17/17 08:27 Constitutional: Yes: Well Nourished, Calm Eyes: Yes: WNL HENT: Yes: WNL, Tonsillar Exudate Cardiovascular: Yes: Regular Rate and Rhythm, S1, S2 Respiratory: Yes: Diminished Gastrointestinal: Yes: Normal Bowel Sounds, Soft Extremities: Yes: WNL Edema: No Labs: CBC, BMP Assessment/Plan Problem List - Problems (1) Pneumonia Code(s): J18.9 - PNEUMONIA, UNSPECIFIED ORGANISM Qualifiers: Pneumonia type: due to unspecified organism Laterality: bilateral Lung location: lower lobe of lung Qualified Code(s): J18.9 - Pneumonia, unspecified organism (2) SIRS (systemic inflammatory response syndrome) Code(s): R65.10 - SIRS OF NON-INFECTIOUS ORIGIN W/O ACUTE ORGAN DYSFUNCTION Assessment/Plan CABP ? TB WT LOSS antibiotics as per id ct chest check cultures DR WRIGHT
--- NOTE | 2017-05-17 16:24 | PN ---
Progress Note, Physician History of Present Illness: still with cough no other issues - Current Medication List Current Medications: Active Medications Acetaminophen (Tylenol -) 650 mg PO Q6H PRN PRN Reason: FEVER OR PAIN Last Admin: 05/15/17 16:54 Dose: 650 mg Albuterol/Ipratropium (Duoneb -) 1 amp NEB QIDR [facility] Last Admin: 05/17/17 11:05 Dose: Not Given Guaifenesin/Codeine Phosphate (Robitussin Ac -) 10 ml PO Q6H PRN Heparin Sodium (Porcine) (Heparin -) 5,000 unit SQ TID [facility] Last Admin: 05/17/17 06:12 Dose: 5,000 unit Piperacillin Sod/Tazobactam (Sod 3.375 gm/ Dextrose) 50 mls @ 100 mls/hr IVPB Q8H-IV [facility] PRN Reason: Protocol Last Admin: 05/17/17 02:26 Dose: 100 mls/hr Vancomycin HCl 1,250 mg/ (Dextrose) 250 mls @ 250 mls/hr IVPB DAILY@1800 [facility] PRN Reason: Protocol Last Admin: 05/16/17 17:27 Dose: 250 mls/hr Sodium Chloride (Normal Saline -) 200 ml IV Q20M PRN PRN Reason: MAP<65mm Hg OR SBP <90 Last Admin: 05/14/17 01:19 Dose: 200 ml - Objective Vital Signs: Vital Signs Temperature 98.1 F 05/17/17 13:38 Pulse Rate 79 05/17/17 13:38 Respiratory Rate 20 05/17/17 13:38 Blood Pressure 116/78 05/17/17 13:38 O2 Sat by Pulse Oximetry (%) 95 05/17/17 08:27 Constitutional: Yes: Calm, Mild Distress Cardiovascular: Yes: Regular Rate and Rhythm Respiratory: Yes: Poor Air Entry, Rhonchi, Other Gastrointestinal: Yes: Normal Bowel Sounds, Soft Musculoskeletal: Yes: WNL Extremities: Yes: WNL Neurological: Yes: Alert, Oriented Psychiatric: Yes: Alert, Oriented Labs: CBC, BMP 05/15/17 05:10 05/15/17 05:10 Assessment/Plan ppd placed Problem List - Problems (1) Pneumonia Code(s): J18.9 - PNEUMONIA, UNSPECIFIED ORGANISM Qualifiers: Pneumonia type: due to unspecified organism Laterality: bilateral Lung location: lower lobe of lung Qualified Code(s): J18.9 - Pneumonia, unspecified organism (2) SIRS (systemic inflammatory response syndrome) Code(s): R65.10 - SIRS OF NON-INFECTIOUS ORIGIN W/O ACUTE ORGAN DYSFUNCTION plan continue abx incentive fabiola ct scan await for all reports some cx report back
[2017-05-17] MEDS: VANCOMYCIN 1,250 MG in DEXTROSE 5%-WATER - 250 ML IVPB SCH ×2 (16:50→18:50)
[2017-05-18] MEDS: ALBUTEROL SO4 2.5/IPRATROPIUM 0.5 INH SOL 3 ML VIAL.NEB. NEB SCH ×5 (00:20→23:30)
[2017-05-18] MEDS ORDERED: PT OWN MED DRAWER 7, Y5N ONE ×4 (01:52→17:06)
[2017-05-18] MEDS: PIPERACILLIN/TAZOB 3.375 GM 3.375 GM in DEXTROSE 5%-WATER - 50 ML IVPB SCH ×3 (02:02→18:18)
[2017-05-18] MEDS: HEPARIN NA (PORCINE) 5,000 UNITS/ML 1ML VIAL SQ SCH ×4 (06:50→22:36)
--- NOTE | 2017-05-18 08:07 | PN ---
Progress Note, Physician - Current Medication List Current Medications: Active Medications Acetaminophen (Tylenol -) 650 mg PO Q6H PRN PRN Reason: FEVER OR PAIN Last Admin: 05/15/17 16:54 Dose: 650 mg Albuterol/Ipratropium (Duoneb -) 1 amp NEB QIDR [facility] Last Admin: 05/18/17 06:15 Dose: 1 amp Guaifenesin/Codeine Phosphate (Robitussin Ac -) 10 ml PO Q6H PRN Last Admin: 05/17/17 23:07 Dose: 10 ml Heparin Sodium (Porcine) (Heparin -) 5,000 unit SQ TID [facility] Last Admin: 05/18/17 06:50 Dose: 5,000 unit Piperacillin Sod/Tazobactam (Sod 3.375 gm/ Dextrose) 50 mls @ 100 mls/hr IVPB Q8H-IV [facility] PRN Reason: Protocol Last Admin: 05/18/17 02:02 Dose: 100 mls/hr Vancomycin HCl 1,250 mg/ (Dextrose) 250 mls @ 250 mls/hr IVPB DAILY@1800 [facility] PRN Reason: Protocol Last Admin: 05/17/17 18:50 Dose: Not Given Sodium Chloride (Normal Saline -) 200 ml IV Q20M PRN PRN Reason: MAP<65mm Hg OR SBP <90 Last Admin: 05/14/17 01:19 Dose: 200 ml - Objective Vital Signs: Vital Signs Temperature 98.3 F 05/18/17 06:00 Pulse Rate 61 05/18/17 06:00 Respiratory Rate 18 05/18/17 06:00 Blood Pressure 112/62 05/18/17 06:00 O2 Sat by Pulse Oximetry (%) 95 05/17/17 21:00 Labs: CBC, BMP 05/15/17 05:10 05/15/17 05:10 Assessment/Plan (1) SIRS (systemic inflammatory response syndrome) Assessment/Plan: - r/o Pneumonia vs TB vs Neoplasm - AFEBRILE NOW - Blood Cultures-pending - Urine Culture-pending Microbiology 05/17/17 07:00 Sputum - Expectorated AFB Smear Concentration - Preliminary 05/17/17 07:00 Sputum - Expectorated Mycobacterial Culture - Preliminary 05/16/17 11:47 Sputum - Expectorated AFB Smear Concentration - Preliminary 05/15/17 07:40 Sputum - Expectorated AFB Smear Concentration - Preliminary 05/13/17 20:45 Blood - Peripheral Venous Blood Culture - Preliminary NO GROWTH OBTAINED AFTER 72 HOURS, INCUBATION TO CONTINUE FOR 2 DAYS. 05/13/17 21:00 Blood - Peripheral Venous Blood Culture - Preliminary NO GROWTH OBTAINED AFTER 72 HOURS, INCUBATION TO CONTINUE FOR 2 DAYS. 05/15/17 10:30 Sputum - Expectorated Gram Stain - Final 05/15/17 10:30 Sputum - Expectorated Sputum Culture - Preliminary NORMAL RESPIRATORY ALICIA 05/14/17 17:58 Urine - Urine Clean Catch Urine Culture - Final NO GROWTH OBTAINED 05/15/17 10:45 Urine - Urine Clean Catch Legionella Antigen - Final 05/15/17 10:45 Urine - Urine Clean Catch Streptococcus pneumoniae Antigen ( M - Final - Sputum Culture - AFB r/o TB - Isolation Precautions- airborne - PPD test NEGATIVE - Zosyn, Vancomycin, NS bolus given in ED, will continue - Appreciate ID Consult - Repeat CBC, BMP in am - Monitor vitals Code(s): R65.10 - SIRS OF NON-INFECTIOUS ORIGIN W/O ACUTE ORGAN DYSFUNCTION (2) Pneumonia Assessment/Plan: - Failed Outpatient Therapy - Will treat for CAP - Chest Xray image- patchy bilateral infiltrates - Given Zosyn, Vancomycin in ED, will continue for broad spectrum coverage- pending BC reports - Appreciate ID and Pulm consults - O2 - Duonebs - Urine Legionella - Monitor vitals -REPEAT CT NOTED--ID AND PULM FOLLOW UP Code(s): J18.9 - PNEUMONIA, UNSPECIFIED ORGANISM Qualifiers: Pneumonia type: due to unspecified organism Laterality: bilateral Lung location: lower lobe of lung Qualified Code(s): J18.9 - Pneumonia, unspecified organism (3) DVT prophylaxis Assessment/Plan: - OOB - Heparin SQ Code(s): [id number] - (4) Liver Lesion Assessment/Plan: - MRI --GI CONSULT
[2017-05-18] MEDS: VANCOMYCIN 1,000 MG in DEXTROSE 5%-WATER - 250 ML IVPB SCH (10:44)
--- NOTE | 2017-05-18 11:51 | PN ---
Progress Note, Physician History of Present Illness: PULMONARY ALERT,NAD,+COUGH YELLOW SPUTUM,-CP,-ABD PAIN - Current Medication List Current Medications: Active Medications Acetaminophen (Tylenol -) 650 mg PO Q6H PRN PRN Reason: FEVER OR PAIN Last Admin: 05/15/17 16:54 Dose: 650 mg Albuterol/Ipratropium (Duoneb -) 1 amp NEB QIDR [facility] Last Admin: 05/18/17 06:15 Dose: 1 amp Guaifenesin/Codeine Phosphate (Robitussin Ac -) 10 ml PO Q6H PRN Last Admin: 05/17/17 23:07 Dose: 10 ml Heparin Sodium (Porcine) (Heparin -) 5,000 unit SQ TID [facility] Last Admin: 05/18/17 06:50 Dose: 5,000 unit Piperacillin Sod/Tazobactam (Sod 3.375 gm/ Dextrose) 50 mls @ 100 mls/hr IVPB Q8H-IV [facility] PRN Reason: Protocol Last Admin: 05/18/17 02:02 Dose: 100 mls/hr Vancomycin HCl 1,250 mg/ (Dextrose) 250 mls @ 250 mls/hr IVPB DAILY@1800 [facility] PRN Reason: Protocol Last Admin: 05/17/17 18:50 Dose: Not Given Sodium Chloride (Normal Saline -) 200 ml IV Q20M PRN PRN Reason: MAP<65mm Hg OR SBP <90 Last Admin: 05/14/17 01:19 Dose: 200 ml - Objective Vital Signs: Vital Signs Temperature 98.3 F 05/18/17 06:00 Pulse Rate 61 05/18/17 06:00 Respiratory Rate 18 05/18/17 06:00 Blood Pressure 112/62 05/18/17 06:00 O2 Sat by Pulse Oximetry (%) 95 05/17/17 21:00 Constitutional: Yes: Well Nourished, Calm Eyes: Yes: WNL HENT: Yes: WNL Neck: Yes: WNL Cardiovascular: Yes: Regular Rate and Rhythm, S1, S2 Respiratory: Yes: Rales (CRACKLES R BASE) Gastrointestinal: Yes: Normal Bowel Sounds, Soft Extremities: Yes: WNL Edema: No Labs: CBC, BMP - ....Imaging Cat Scan: Report Reviewed, Image Reviewed Assessment/Plan Problem List - Problems (1) Pneumonia Code(s): J18.9 - PNEUMONIA, UNSPECIFIED ORGANISM Qualifiers: Pneumonia type: due to unspecified organism Laterality: bilateral Lung location: lower lobe of lung Qualified Code(s): J18.9 - Pneumonia, unspecified organism (2) SIRS (systemic inflammatory response syndrome) Code(s): R65.10 - SIRS OF NON-INFECTIOUS ORIGIN W/O ACUTE ORGAN DYSFUNCTION Assessment/Plan RLL PEUMONIA ? TB LIVER LESION WT LOSS antibiotics as per id GI evaluation MRI ABDOMEN DR WRIGHT
--- NOTE | 2017-05-18 14:28 | PN ---
Progress Note, Physician History of Present Illness: stable doing well sputum negative - Current Medication List Current Medications: Active Medications Acetaminophen (Tylenol -) 650 mg PO Q6H PRN PRN Reason: FEVER OR PAIN Last Admin: 05/15/17 16:54 Dose: 650 mg Albuterol/Ipratropium (Duoneb -) 1 amp NEB QIDR [facility] Last Admin: 05/18/17 11:25 Dose: 1 amp Guaifenesin/Codeine Phosphate (Robitussin Ac -) 10 ml PO Q6H PRN Last Admin: 05/17/17 23:07 Dose: 10 ml Heparin Sodium (Porcine) (Heparin -) 5,000 unit SQ TID [facility] Last Admin: 05/18/17 13:06 Dose: Not Given Piperacillin Sod/Tazobactam (Sod 3.375 gm/ Dextrose) 50 mls @ 100 mls/hr IVPB Q8H-IV [facility] PRN Reason: Protocol Last Admin: 05/18/17 12:17 Dose: 100 mls/hr Vancomycin HCl 1,250 mg/ (Dextrose) 250 mls @ 250 mls/hr IVPB DAILY@1800 [facility] PRN Reason: Protocol Last Admin: 05/17/17 18:50 Dose: Not Given Sodium Chloride (Normal Saline -) 200 ml IV Q20M PRN PRN Reason: MAP<65mm Hg OR SBP <90 Last Admin: 05/14/17 01:19 Dose: 200 ml - Objective Vital Signs: Vital Signs Temperature 98.2 F 05/18/17 12:00 Pulse Rate 77 05/18/17 12:00 Respiratory Rate 20 05/18/17 12:00 Blood Pressure 125/74 05/18/17 12:00 O2 Sat by Pulse Oximetry (%) 95 05/17/17 21:00 Constitutional: Yes: Calm, Mild Distress Cardiovascular: Yes: Regular Rate and Rhythm Respiratory: Yes: Regular, Poor Air Entry, Rhonchi Gastrointestinal: Yes: Normal Bowel Sounds, Soft Musculoskeletal: Yes: WNL Extremities: Yes: WNL Neurological: Yes: Alert, Oriented Psychiatric: Yes: Alert, Oriented Labs: CBC, BMP 05/15/17 05:10 05/15/17 05:10 - ....Imaging MRI: Report Reviewed, Image Reviewed Assessment/Plan ppd placed Problem List - Problems (1) Pneumonia Code(s): J18.9 - PNEUMONIA, UNSPECIFIED ORGANISM Qualifiers: Pneumonia type: due to unspecified organism Laterality: bilateral Lung location: lower lobe of lung Qualified Code(s): J18.9 - Pneumonia, unspecified organism (2) SIRS (systemic inflammatory response syndrome) Code(s): R65.10 - SIRS OF NON-INFECTIOUS ORIGIN W/O ACUTE ORGAN DYSFUNCTION plan continue abx incentive fabiola mri result noted rest as per primary team
--- NOTE | 2017-05-18 17:25 | CON.GI ---
Consult Consult Specialty:: gastroenterology Referred by:: Oma Roberts/Gina/Josue Reason for Consultation:: liver lesion segment 7(right lobe) - History of Present Illness History of Present Illness: 36 y/o male was doing well until 6 weeks ago when he develop chronic productive cough, fevr,night sweats and 16 lb wweight loss and pleuritic chest pain. He was admitted with pneumonia etiology is unlcear quantiferon test is pending. Catscan was done , a calcified lesion in segment & of the liver was found, Hepatitis B serology was negative. 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 Cardio/Vascular: No: AFIB Pulmonary: No: Asthma Gastrointestinal: No: Ascites Hepatobiliary: No: Cirrhosis Renal/: No: Renal Failure Infectious Disease: No: AIDS Psych: No: Addictions Musculoskeletal: No: Bursitis Rheumatology: No: Fibromyalgia ENT: No: Allergic Rhinitis Endocrine: No: [place]'s Disease - Alcohol/Substance Use Hx Alcohol Use: Yes - Smoking History Smoking history: Never smoked Have you smoked in the past 12 months: No Home Medications - Allergies Allergies/Adverse Reactions: Allergies Allergy/AdvReac Type Severity Reaction Status Date / Time No Known Allergies Allergy Verified 05/13/17 21:44 - Home Medications Home Medications: Ambulatory Orders NK [No Known Home Medication] 05/14/17 Review of Systems - Review of Systems Constitutional: reports: Fever Eyes: denies: Blind Spots HENT: denies: Difficult Swallowing Neck: denies: Decreased ROM Cardiovascular: denies: Chest Pain Respiratory: denies: Cough Gastrointestinal: denies: Abdominal Pain, Bloating, Dysphagia, Indigestion, Melena, Rectal Bleeding, Vomiting Physical Exam-GI Vital Signs: Vital Signs Temperature 97.6 F 05/18/17 14:40 Pulse Rate 71 05/18/17 14:40 Respiratory Rate 16 05/18/17 14:40 Blood Pressure 123/72 05/18/17 14:40 O2 Sat by Pulse Oximetry (%) 98 05/18/17 09:00 Constitutional: Yes: Well Nourished Eyes: Yes: Conjunctiva Clear HENT: Yes: Atraumatic Neck: Yes: Supple Cardiovascular: Yes: Regular Rate and Rhythm Respiratory: Yes: CTA Bilaterally ...Palpate: Yes: Soft. No: Firm/Rigid, Guarding, Hepatomegaly, Mass, Pulsatile Mass, Splenomegaly, Tenderness Labs: CBC, BMP 05/15/17 05:10 05/15/17 05:10 Hepatitis Profile WBC 8.7 K/mm3 (4.0-10.0) D 05/15/17 05:10 RBC 4.63 M/mm3 (4.00-5.60) 05/15/17 05:10 Hgb 13.1 GM/dL (11.7-16.9) 05/15/17 05:10 Hct 39.7 % (35.4-49) 05/15/17 05:10 MCV 85.8 fl (80-96) 05/15/17 05:10 Neutrophils % 71.3 % (42.8-82.8) 05/15/17 05:10 Lymphocytes % 16.9 % (8-40) D 05/15/17 05:10 Monocytes % 10.0 % (3.8-10.2) 05/15/17 05:10 Basophils % 0.8 % (0-2.0) 05/15/17 05:10 Hepatitis C Ab (EIA) <0.1 s/co ratio (0.0-0.9) 05/14/17 10:10 Hepatic Panel Total Bilirubin 0.4 mg/dL (0.2-1.0) D 05/15/17 05:10 AST 28 U/L (15-37) D 05/15/17 05:10 ALT 50 U/L (12-78) 05/15/17 05:10 Alkaline Phosphatase 137 U/L (45-117) H 05/15/17 05:10 Albumin 2.9 g/dl (3.4-5.0) L 05/15/17 05:10 Problem List - Problems (1) Neoplasm, liver Assessment/Plan: most likely benign R> await MRI results AFP level HCV ab
[2017-05-18] MEDS: VANCOMYCIN 1,250 MG in DEXTROSE 5%-WATER - 250 ML IVPB SCH (18:44)
[2017-05-18 19:16] LABS: QFT TB AG - NIL VALUE 0.08 IU/mL (.); QUANT MITOGEN VALUE >10.00 IU/mL (.); QUANT NIL VALUE 0.13 IU/mL (.); QUANT TB AG VALUE 0.21 IU/mL (.); QUANTIFERON GOLD Negative (Negative)
[2017-05-18] MEDS: guaiFENesin/CODEINE 5 ML UNIT-DOSE CUPS PO PRN (20:03)
[2017-05-19] MEDS ORDERED: PT OWN MED DRAWER 7, Y5N ONE ×3 (00:58→16:16)
[2017-05-19] MEDS: PIPERACILLIN/TAZOB 3.375 GM 3.375 GM in DEXTROSE 5%-WATER - 50 ML IVPB SCH ×4 (01:33→18:42)
[2017-05-19] MEDS: HEPARIN NA (PORCINE) 5,000 UNITS/ML 1ML VIAL SQ SCH ×3 (06:20→21:03)
[2017-05-19] MEDS: ALBUTEROL SO4 2.5/IPRATROPIUM 0.5 INH SOL 3 ML VIAL.NEB. NEB SCH ×4 (07:04→23:02)
--- NOTE | 2017-05-19 11:09 | PN ---
Progress Note, Physician History of Present Illness: C/O COUGH - Current Medication List Current Medications: Active Medications Acetaminophen (Tylenol -) 650 mg PO Q6H PRN PRN Reason: FEVER OR PAIN Last Admin: 05/15/17 16:54 Dose: 650 mg Albuterol/Ipratropium (Duoneb -) 1 amp NEB QIDR [facility] Last Admin: 05/19/17 07:04 Dose: 1 amp Guaifenesin/Codeine Phosphate (Robitussin Ac -) 10 ml PO Q6H PRN Last Admin: 05/18/17 20:03 Dose: 10 ml Heparin Sodium (Porcine) (Heparin -) 5,000 unit SQ TID [facility] Last Admin: 05/19/17 06:20 Dose: Not Given Piperacillin Sod/Tazobactam (Sod 3.375 gm/ Dextrose) 50 mls @ 100 mls/hr IVPB Q8H-IV [facility] PRN Reason: Protocol Last Admin: 05/19/17 10:05 Dose: 100 mls/hr Vancomycin HCl 1,250 mg/ (Dextrose) 250 mls @ 250 mls/hr IVPB DAILY@1800 [facility] PRN Reason: Protocol Last Admin: 05/18/17 18:44 Dose: 250 mls/hr Sodium Chloride (Normal Saline -) 200 ml IV Q20M PRN PRN Reason: MAP<65mm Hg OR SBP <90 Last Admin: 05/14/17 01:19 Dose: 200 ml - Objective Vital Signs: Vital Signs Temperature 98 F 05/19/17 10:09 Pulse Rate 74 05/19/17 10:09 Respiratory Rate 20 05/19/17 10:09 Blood Pressure 116/77 05/19/17 10:09 O2 Sat by Pulse Oximetry (%) 98 05/18/17 21:00 Cardiovascular: Yes: Regular Rate and Rhythm Respiratory: Yes: Rhonchi Gastrointestinal: Yes: Normal Bowel Sounds, Soft Labs: CBC, BMP 05/15/17 05:10 05/15/17 05:10 Assessment/Plan (1) SIRS (systemic inflammatory response syndrome) Assessment/Plan: - r/o Pneumonia vs TB vs Neoplasm - AFEBRILE NOW - Blood Cultures-pending - Urine Culture-pending Microbiology 05/17/17 07:00 Sputum - Expectorated AFB Smear Concentration - Preliminary 05/17/17 07:00 Sputum - Expectorated Mycobacterial Culture - Preliminary 05/16/17 11:47 Sputum - Expectorated AFB Smear Concentration - Preliminary 05/15/17 07:40 Sputum - Expectorated AFB Smear Concentration - Preliminary 05/13/17 20:45 Blood - Peripheral Venous Blood Culture - Preliminary NO GROWTH OBTAINED AFTER 72 HOURS, INCUBATION TO CONTINUE FOR 2 DAYS. 05/13/17 21:00 Blood - Peripheral Venous Blood Culture - Preliminary NO GROWTH OBTAINED AFTER 72 HOURS, INCUBATION TO CONTINUE FOR 2 DAYS. 05/15/17 10:30 Sputum - Expectorated Gram Stain - Final 05/15/17 10:30 Sputum - Expectorated Sputum Culture - Preliminary NORMAL RESPIRATORY ALICIA 05/14/17 17:58 Urine - Urine Clean Catch Urine Culture - Final NO GROWTH OBTAINED 05/15/17 10:45 Urine - Urine Clean Catch Legionella Antigen - Final 05/15/17 10:45 Urine - Urine Clean Catch Streptococcus pneumoniae Antigen ( M - Final - Sputum Culture - AFB negative - Isolation Precautions- airborne--dc - PPD test NEGATIVE - Zosyn, Vancomycin, NS bolus given in ED, will continue - Appreciate ID Consult - Repeat CBC, BMP in am - Monitor vitals Code(s): R65.10 - SIRS OF NON-INFECTIOUS ORIGIN W/O ACUTE ORGAN DYSFUNCTION (2) Pneumonia Assessment/Plan: - Failed Outpatient Therapy - Will treat for CAP - Chest Xray image- patchy bilateral infiltrates - Given Zosyn, Vancomycin in ED, will continue for broad spectrum coverage- pending BC reports - Appreciate ID and Pulm consults - O2 - Duonebs - Urine Legionella - Monitor vitals -REPEAT CT NOTED--ID AND PULM FOLLOW UP Code(s): J18.9 - PNEUMONIA, UNSPECIFIED ORGANISM Qualifiers: Pneumonia type: due to unspecified organism Laterality: bilateral Lung location: lower lobe of lung Qualified Code(s): J18.9 - Pneumonia, unspecified organism (3) DVT prophylaxis Assessment/Plan: - OOB - Heparin SQ Code(s): [id number] - (4) Liver Lesion Assessment/Plan: - MRI RESULTS PENDING --GI CONSULT
--- NOTE | 2017-05-19 12:22 | PN ---
Progress Note, Physician History of Present Illness: PULMONARY ALERT,NAD,-SOB,+ COUGH,AFEBRILE - Current Medication List Current Medications: Active Medications Acetaminophen (Tylenol -) 650 mg PO Q6H PRN PRN Reason: FEVER OR PAIN Last Admin: 05/15/17 16:54 Dose: 650 mg Albuterol/Ipratropium (Duoneb -) 1 amp NEB QIDR [facility] Last Admin: 05/19/17 07:04 Dose: 1 amp Guaifenesin/Codeine Phosphate (Robitussin Ac -) 10 ml PO Q6H PRN Last Admin: 05/18/17 20:03 Dose: 10 ml Heparin Sodium (Porcine) (Heparin -) 5,000 unit SQ TID [facility] Last Admin: 05/19/17 06:20 Dose: Not Given Piperacillin Sod/Tazobactam (Sod 3.375 gm/ Dextrose) 50 mls @ 100 mls/hr IVPB Q8H-IV [facility] PRN Reason: Protocol Last Admin: 05/19/17 10:05 Dose: 100 mls/hr Vancomycin HCl 1,250 mg/ (Dextrose) 250 mls @ 250 mls/hr IVPB DAILY@1800 [facility] PRN Reason: Protocol Last Admin: 05/18/17 18:44 Dose: 250 mls/hr Sodium Chloride (Normal Saline -) 200 ml IV Q20M PRN PRN Reason: MAP<65mm Hg OR SBP <90 Last Admin: 05/14/17 01:19 Dose: 200 ml - Objective Vital Signs: Vital Signs Temperature 98 F 05/19/17 10:09 Pulse Rate 74 05/19/17 10:09 Respiratory Rate 20 05/19/17 10:09 Blood Pressure 116/77 05/19/17 10:09 O2 Sat by Pulse Oximetry (%) 98 05/19/17 09:00 Constitutional: Yes: Well Nourished, Calm Eyes: Yes: WNL HENT: Yes: WNL Neck: Yes: WNL Cardiovascular: Yes: Regular Rate and Rhythm, S1, S2 Respiratory: Yes: Rales (CRACKLES R BASE) Gastrointestinal: Yes: Normal Bowel Sounds, Soft Extremities: Yes: WNL Edema: No Assessment/Plan Problem List - Problems (1) Pneumonia Code(s): J18.9 - PNEUMONIA, UNSPECIFIED ORGANISM Qualifiers: Pneumonia type: due to unspecified organism Laterality: bilateral Lung location: lower lobe of lung Qualified Code(s): J18.9 - Pneumonia, unspecified organism (2) SIRS (systemic inflammatory response syndrome) Code(s): R65.10 - SIRS OF NON-INFECTIOUS ORIGIN W/O ACUTE ORGAN DYSFUNCTION Assessment/Plan RLL PEUMONIA ? TB LIVER LESION WT LOSS antibiotics as per id check results of MRI DR WRIGHT
--- NOTE | 2017-05-19 16:35 | CONSULT ---
Consult - text type - Consultation Consultation Note: Thoracic Consultation: Pt seen and examined. Strange story of 36M with walking pneumonia but did not behave typically. Fevers have resolved with antibiotics but CT and MR show liver abscess/phlegmon with contiguous RLL PNA. PE: WD/WN, mild tenderness right flank, dry cough Since he is improving clinically, would continue current regimen. Although unlikely, liver organisms should be considered such echincoccus, amoebiasis, etc but would not improve with regular antibiosis. Recommend that we continue current regimen and reimage in ~5days. May need drainage and cultures to better identify organisms. I have spent 40 minutes with >50% in counseling and coordination of care including reviewing images, labs, and discussion with Dr. Glynn and obtaining a history and physical.
--- NOTE | 2017-05-19 16:50 | PN ---
GI Progress Note Subjective: phlegmon /liver abscess by MRI, pleuritic chest pain - Objective Vital Signs: Vital Signs Temperature 97.7 F 05/19/17 14:07 Pulse Rate 91 H 05/19/17 14:07 Respiratory Rate 16 05/19/17 14:07 Blood Pressure 128/71 05/19/17 14:07 O2 Sat by Pulse Oximetry (%) 98 05/19/17 09:00 Constitutional: Well Nourished Eyes: Yes: Conjunctiva Clear HENT: Yes: Atraumatic Neck: Yes: Trachea Midline Cardiovascular: Yes: Regular Rate and Rhythm Respiratory: Yes: CTA Bilaterally ...Palpate: No: Firm/Rigid, Guarding, Hepatomegaly, Mass, Pulsatile Mass, Splenomegaly, Tenderness Labs: CBC, BMP 05/15/17 05:10 05/15/17 05:10 Problem List - Problems (1) Liver abscess Assessment/Plan: 5cm abscess vs phelgmon R> continue antibiotics repeat imaging after 5 dyas if no improvement of there is worsening clinical condition--will need to have percutaneous drainage and consult IR Code(s): K75.0 - ABSCESS OF LIVER
[2017-05-19] MEDS: VANCOMYCIN 1,250 MG in DEXTROSE 5%-WATER - 250 ML IVPB SCH ×2 (16:55→18:42)
--- NOTE | 2017-05-19 18:02 | PN ---
Progress Note, Physician History of Present Illness: stable doing well no complaints seen by thoracic - Current Medication List Current Medications: Active Medications Acetaminophen (Tylenol -) 650 mg PO Q6H PRN PRN Reason: FEVER OR PAIN Last Admin: 05/15/17 16:54 Dose: 650 mg Albuterol/Ipratropium (Duoneb -) 1 amp NEB QIDR [facility] Last Admin: 05/19/17 17:39 Dose: Not Given Guaifenesin/Codeine Phosphate (Robitussin Ac -) 10 ml PO Q6H PRN Last Admin: 05/18/17 20:03 Dose: 10 ml Heparin Sodium (Porcine) (Heparin -) 5,000 unit SQ TID [facility] Last Admin: 05/19/17 15:13 Dose: Not Given Piperacillin Sod/Tazobactam (Sod 3.375 gm/ Dextrose) 50 mls @ 100 mls/hr IVPB Q8H-IV [facility] PRN Reason: Protocol Last Admin: 05/19/17 16:29 Dose: 100 mls/hr Vancomycin HCl 1,250 mg/ (Dextrose) 250 mls @ 250 mls/hr IVPB DAILY@1800 [facility] PRN Reason: Protocol Last Admin: 05/19/17 16:55 Dose: 250 mls/hr Sodium Chloride (Normal Saline -) 200 ml IV Q20M PRN PRN Reason: MAP<65mm Hg OR SBP <90 Last Admin: 05/14/17 01:19 Dose: 200 ml - Objective Vital Signs: Vital Signs Temperature 97.7 F 05/19/17 14:07 Pulse Rate 91 H 05/19/17 14:07 Respiratory Rate 16 05/19/17 14:07 Blood Pressure 128/71 05/19/17 14:07 O2 Sat by Pulse Oximetry (%) 98 05/19/17 09:00 Constitutional: Yes: Calm, Mild Distress Cardiovascular: Yes: Regular Rate and Rhythm Respiratory: Yes: Regular, Poor Air Entry Gastrointestinal: Yes: Normal Bowel Sounds, Soft Musculoskeletal: Yes: WNL Extremities: Yes: WNL Neurological: Yes: Alert, Oriented Psychiatric: Yes: Alert, Oriented Labs: CBC, BMP 05/15/17 05:10 05/15/17 05:10 Assessment/Plan ppd placed Problem List - Problems (1) Pneumonia Code(s): J18.9 - PNEUMONIA, UNSPECIFIED ORGANISM Qualifiers: Pneumonia type: due to unspecified organism Laterality: bilateral Lung location: lower lobe of lung Qualified Code(s): J18.9 - Pneumonia, unspecified organism (2) SIRS (systemic inflammatory response syndrome) Code(s): R65.10 - SIRS OF NON-INFECTIOUS ORIGIN W/O ACUTE ORGAN DYSFUNCTION livewr abscess plan continue abx incentive fabiola mri result noted rest as per primary team wbc normal might need draiange
[2017-05-19] MEDS: guaiFENesin/CODEINE 5 ML UNIT-DOSE CUPS PO PRN (21:04)
[2017-05-20] MEDS ORDERED: PT OWN MED DRAWER 7, Y5N ONE ×3 (01:53→17:09)
[2017-05-20] MEDS: PIPERACILLIN/TAZOB 3.375 GM 3.375 GM in DEXTROSE 5%-WATER - 50 ML IVPB SCH ×3 (02:10→17:11)
[2017-05-20] MEDS: ALBUTEROL SO4 2.5/IPRATROPIUM 0.5 INH SOL 3 ML VIAL.NEB. NEB SCH ×4 (06:47→23:25)
[2017-05-20] MEDS: HEPARIN NA (PORCINE) 5,000 UNITS/ML 1ML VIAL SQ SCH ×3 (07:00→21:55)
--- NOTE | 2017-05-20 10:46 | PN ---
Progress Note, Physician History of Present Illness: FEELS BETTER - Current Medication List Current Medications: Active Medications Acetaminophen (Tylenol -) 650 mg PO Q6H PRN PRN Reason: FEVER OR PAIN Last Admin: 05/15/17 16:54 Dose: 650 mg Albuterol/Ipratropium (Duoneb -) 1 amp NEB QIDR [facility] Last Admin: 05/20/17 06:47 Dose: 1 amp Heparin Sodium (Porcine) (Heparin -) 5,000 unit SQ TID [facility] Last Admin: 05/20/17 07:00 Dose: 5,000 unit Piperacillin Sod/Tazobactam (Sod 3.375 gm/ Dextrose) 50 mls @ 100 mls/hr IVPB Q8H-IV [facility] PRN Reason: Protocol Last Admin: 05/20/17 10:16 Dose: 100 mls/hr Vancomycin HCl 1,250 mg/ (Dextrose) 250 mls @ 250 mls/hr IVPB DAILY@1800 [facility] PRN Reason: Protocol Last Admin: 05/19/17 18:42 Dose: Not Given Sodium Chloride (Normal Saline -) 200 ml IV Q20M PRN PRN Reason: MAP<65mm Hg OR SBP <90 Last Admin: 05/14/17 01:19 Dose: 200 ml - Objective Vital Signs: Vital Signs Temperature 98 F 05/20/17 10:15 Pulse Rate 80 05/20/17 10:15 Respiratory Rate 20 05/20/17 10:15 Blood Pressure 117/68 05/20/17 10:15 O2 Sat by Pulse Oximetry (%) 98 05/20/17 09:00 Cardiovascular: Yes: Regular Rate and Rhythm Respiratory: Yes: Rales (AT THE RT BASE) Labs: CBC, BMP 05/15/17 05:10 05/15/17 05:10 Assessment/Plan (1) SIRS (systemic inflammatory response syndrome) Assessment/Plan: - r/o Pneumonia vs TB vs Neoplasm - AFEBRILE NOW - Blood Cultures-NEG - Urine Culture-NEG - Sputum Culture - AFB negative - Isolation Precautions- airborne--dc - PPD test NEGATIVE - Zosyn, Vancomycin, NS bolus given in ED, will continue - Appreciate ID Consult - Repeat CBC, BMP in am - Monitor vitals Code(s): R65.10 - SIRS OF NON-INFECTIOUS ORIGIN W/O ACUTE ORGAN DYSFUNCTION (2) Pneumonia Assessment/Plan: - Failed Outpatient Therapy - Will treat for CAP - Chest Xray image- patchy bilateral infiltrates - Given Zosyn, Vancomycin in ED, will continue for broad spectrum coverage- pending BC reports - Appreciate ID and Pulm consults - O2 - Duonebs - Urine Legionella - Monitor vitals -REPEAT CT NOTED--ID AND PULM FOLLOW UP --INFILTRATING PROCESS INVADING DIAPHRAGM --EXTENDING TO RUQ--NO COLLECTION --D/W DR WRIGHT -CONTINUE WITH ABX Code(s): J18.9 - PNEUMONIA, UNSPECIFIED ORGANISM Qualifiers: Pneumonia type: due to unspecified organism Laterality: bilateral Lung location: lower lobe of lung Qualified Code(s): J18.9 - Pneumonia, unspecified organism (3) DVT prophylaxis Assessment/Plan: - OOB - Heparin SQ Code(s): [id number] - (4) Liver Lesion Assessment/Plan: - MRI RESULTS D/W RADIOLOGIST--CONNECTING WITH LUNG INFECTION-NOT AN ABSCESS --GI CONSULT NOTED
--- NOTE | 2017-05-20 11:15 | PN ---
Progress Note, Physician History of Present Illness: PULMONARY ALERT ,NAD,AFEBRILE,+ COUGH,-SOB. - Current Medication List Current Medications: Active Medications Acetaminophen (Tylenol -) 650 mg PO Q6H PRN PRN Reason: FEVER OR PAIN Last Admin: 05/15/17 16:54 Dose: 650 mg Albuterol/Ipratropium (Duoneb -) 1 amp NEB QIDR [facility] Last Admin: 05/20/17 11:05 Dose: 1 amp Heparin Sodium (Porcine) (Heparin -) 5,000 unit SQ TID [facility] Last Admin: 05/20/17 07:00 Dose: 5,000 unit Piperacillin Sod/Tazobactam (Sod 3.375 gm/ Dextrose) 50 mls @ 100 mls/hr IVPB Q8H-IV [facility] PRN Reason: Protocol Last Admin: 05/20/17 10:16 Dose: 100 mls/hr Vancomycin HCl 1,250 mg/ (Dextrose) 250 mls @ 250 mls/hr IVPB DAILY@1800 [facility] PRN Reason: Protocol Last Admin: 05/19/17 18:42 Dose: Not Given Sodium Chloride (Normal Saline -) 200 ml IV Q20M PRN PRN Reason: MAP<65mm Hg OR SBP <90 Last Admin: 05/14/17 01:19 Dose: 200 ml - Objective Vital Signs: Vital Signs Temperature 98 F 05/20/17 10:15 Pulse Rate 80 05/20/17 10:15 Respiratory Rate 20 05/20/17 10:15 Blood Pressure 117/68 05/20/17 10:15 O2 Sat by Pulse Oximetry (%) 98 05/20/17 09:00 Constitutional: Yes: Calm, Thin Eyes: Yes: WNL HENT: Yes: WNL Neck: Yes: WNL Cardiovascular: Yes: Regular Rate and Rhythm, S1, S2 Respiratory: Yes: Diminished (DIMINISHED BS R BASE) Gastrointestinal: Yes: Normal Bowel Sounds, Soft Extremities: Yes: WNL Edema: No Labs: CBC, BMP 05/15/17 05:10 05/15/17 05:10 - ....Imaging MRI: Report Reviewed, Image Reviewed (RLL CONSOLIDATION EXTENDING BELOW DIAPHRAGM) Assessment/Plan Problem List - Problems (1) Pneumonia Code(s): J18.9 - PNEUMONIA, UNSPECIFIED ORGANISM Qualifiers: Pneumonia type: due to unspecified organism Laterality: bilateral Lung location: lower lobe of lung Qualified Code(s): J18.9 - Pneumonia, unspecified organism (2) SIRS (systemic inflammatory response syndrome) Code(s): R65.10 - SIRS OF NON-INFECTIOUS ORIGIN W/O ACUTE ORGAN DYSFUNCTION Assessment/Plan RLL PEUMONIA LIVER LESION WT LOSS antibiotics as per id ID f/u pt is clinically improving afebrile,wbc as per IR unable to drain any fluid DR WRIGHT
[2017-05-20 11:36] LABS: BASOPHIL 1.4 % (0-2.0); EOSINOPHIL 2.7 % (0-4.5); MCH 28.4 pg (25.7-33.7); MEAN CELL VOLUME 86.1 fl (80-96); MEAN PLT VOLUME 7.6 fl (7.5-11.1); PLATELET COUNT 300 K/MM3 (134-434); RDW 12.5 % (11.9-15.9); WHITE BLOOD COUNT 7.4 K/mm3 (4.0-10.0)
[2017-05-20 11:54] LABS: INR 1.12 (0.82-1.09); PROTHROMBIN TIME (PATIENT) 12.7 SEC (9.98-11.88)
[2017-05-20 11:57] LABS: ACTIVATED PTT 31.3 SECONDS (26.9-34.4)
[2017-05-20 12:05] LABS: ALBUMIN 3.1 g/dl (3.4-5.0); ALK PHOS 187 U/L (45-117); ANION GAP 7 (8-16); BILIRUBIN,TOTAL 0.3 mg/dL (0.2-1.0); CALCIUM 8.9 mg/dL (8.5-10.1); CO2 28 mmol/L (21-32); CREATININE 0.7 mg/dL (0.7-1.3); GLUCOSE,RANDOM 93 mg/dL (74-106); SGOT/AST 77 U/L (15-37); SGPT/ALT 150 U/L (12-78); TOT PROT 7.4 g/dl (6.4-8.2)
[2017-05-20 12:52] LABS: C-REACTIVE PROTEIN 4.5 MG/DL (0.00-0.3)
[2017-05-20 16:30] LABS: ERYTHROCYTE SEDIMENTATION RATE 80 mm/hr (0-10)
[2017-05-20] MEDS: VANCOMYCIN 1,250 MG in DEXTROSE 5%-WATER - 250 ML IVPB SCH (17:12)
[2017-05-21] MEDS ORDERED: PT OWN MED DRAWER 7, Y5N ONE (01:10)
[2017-05-21] MEDS: PIPERACILLIN/TAZOB 3.375 GM 3.375 GM in DEXTROSE 5%-WATER - 50 ML IVPB SCH ×2 (01:24→11:32)
[2017-05-21] MEDS: ALBUTEROL SO4 2.5/IPRATROPIUM 0.5 INH SOL 3 ML VIAL.NEB. NEB SCH ×4 (06:50→23:10)
--- NOTE | 2017-05-21 10:13 | PN ---
Progress Note, Physician History of Present Illness: FEELS BETTER - Current Medication List Current Medications: Active Medications Acetaminophen (Tylenol -) 650 mg PO Q6H PRN PRN Reason: FEVER OR PAIN Last Admin: 05/15/17 16:54 Dose: 650 mg Albuterol/Ipratropium (Duoneb -) 1 amp NEB QIDR [facility] Last Admin: 05/21/17 06:50 Dose: 1 amp Piperacillin Sod/Tazobactam (Sod 3.375 gm/ Dextrose) 50 mls @ 100 mls/hr IVPB Q8H-IV [facility] PRN Reason: Protocol Last Admin: 05/21/17 01:24 Dose: 100 mls/hr Vancomycin HCl 1,250 mg/ (Dextrose) 250 mls @ 250 mls/hr IVPB DAILY@1800 [facility] PRN Reason: Protocol Last Admin: 05/20/17 17:12 Dose: 250 mls/hr Sodium Chloride (Normal Saline -) 200 ml IV Q20M PRN PRN Reason: MAP<65mm Hg OR SBP <90 Last Admin: 05/14/17 01:19 Dose: 200 ml - Objective Vital Signs: Vital Signs Temperature 97.3 F L 05/21/17 05:00 Pulse Rate 75 05/21/17 05:00 Respiratory Rate 20 05/21/17 05:00 Blood Pressure 129/70 05/21/17 05:00 O2 Sat by Pulse Oximetry (%) 95 05/20/17 21:00 Cardiovascular: Yes: Regular Rate and Rhythm Respiratory: Yes: Regular, Rhonchi Gastrointestinal: Yes: Normal Bowel Sounds, Soft Labs: CBC, BMP 05/20/17 11:31 05/20/17 11:31 INR, PTT INR 1.12 (0.82-1.09) 05/20/17 11:31 Assessment/Plan (1) SIRS (systemic inflammatory response syndrome)--Sepsis--unspecified organism Assessment/Plan: - r/o Pneumonia vs TB vs Neoplasm - AFEBRILE NOW - Blood Cultures-NEG - Urine Culture-NEG - Sputum Culture - AFB negative - Isolation Precautions- airborne--dc - PPD test NEGATIVE - Zosyn, Vancomycin, NS bolus given in ED, will continue - Appreciate ID Consult - Repeat CBC, BMP in am - Monitor vitals Code(s): R65.10 - SIRS OF NON-INFECTIOUS ORIGIN W/O ACUTE ORGAN DYSFUNCTION (2) Pneumonia Assessment/Plan: - Failed Outpatient Therapy - Will treat for CAP - Chest Xray image- patchy bilateral infiltrates - Given Zosyn, Vancomycin in ED, will continue for broad spectrum coverage- pending BC reports - Appreciate ID and Pulm consults - O2 - Duonebs - Urine Legionella - Monitor vitals -REPEAT CT NOTED--ID AND PULM FOLLOW UP --INFILTRATING PROCESS INVADING DIAPHRAGM --EXTENDING TO RUQ--NO COLLECTION --D/W DR WRIGHT -CONTINUE WITH ABX --id consult--2nd opinion Code(s): J18.9 - PNEUMONIA, UNSPECIFIED ORGANISM Qualifiers: Pneumonia type: due to unspecified organism Laterality: bilateral Lung location: lower lobe of lung Qualified Code(s): J18.9 - Pneumonia, unspecified organism (3) DVT prophylaxis Assessment/Plan: - OOB - Heparin SQ Code(s): [id number] - (4) Liver Lesion Assessment/Plan: - MRI RESULTS D/W RADIOLOGIST--CONNECTING WITH LUNG INFECTION-NOT AN ABSCESS --GI CONSULT NOTED --id consult (5) Abnormal Liver Enzymes Assessment/Plan: - Maybe from zosyn -repeat -dc tylenol
--- NOTE | 2017-05-21 10:26 | PN ---
Progress Note, Physician History of Present Illness: stable doing well no complaints seen by thoracic - Current Medication List Current Medications: Active Medications Albuterol/Ipratropium (Duoneb -) 1 amp NEB QIDR [facility] Last Admin: 05/21/17 06:50 Dose: 1 amp Piperacillin Sod/Tazobactam (Sod 3.375 gm/ Dextrose) 50 mls @ 100 mls/hr IVPB Q8H-IV [facility] PRN Reason: Protocol Last Admin: 05/21/17 01:24 Dose: 100 mls/hr Vancomycin HCl 1,250 mg/ (Dextrose) 250 mls @ 250 mls/hr IVPB DAILY@1800 [facility] PRN Reason: Protocol Last Admin: 05/20/17 17:12 Dose: 250 mls/hr Sodium Chloride (Normal Saline -) 200 ml IV Q20M PRN PRN Reason: MAP<65mm Hg OR SBP <90 Last Admin: 05/14/17 01:19 Dose: 200 ml - Objective Vital Signs: Vital Signs Temperature 97.3 F L 05/21/17 05:00 Pulse Rate 75 05/21/17 05:00 Respiratory Rate 20 05/21/17 05:00 Blood Pressure 129/70 05/21/17 05:00 O2 Sat by Pulse Oximetry (%) 95 05/20/17 21:00 Constitutional: Yes: No Distress, Calm Cardiovascular: Yes: Regular Rate and Rhythm Respiratory: Yes: Regular, CTA Bilaterally Gastrointestinal: Yes: Normal Bowel Sounds, Soft Musculoskeletal: Yes: WNL Extremities: Yes: WNL Neurological: Yes: Alert, Oriented Psychiatric: Yes: Alert, Oriented Labs: CBC, BMP 05/20/17 11:31 05/20/17 11:31 INR, PTT INR 1.12 (0.82-1.09) 05/20/17 11:31 Assessment/Plan ppd placed Problem List - Problems (1) Pneumonia Code(s): J18.9 - PNEUMONIA, UNSPECIFIED ORGANISM Qualifiers: Pneumonia type: due to unspecified organism Laterality: bilateral Lung location: lower lobe of lung Qualified Code(s): J18.9 - Pneumonia, unspecified organism (2) SIRS (systemic inflammatory response syndrome) Code(s): R65.10 - SIRS OF NON-INFECTIOUS ORIGIN W/O ACUTE ORGAN DYSFUNCTION livewr abscess plan continue abx continue as per primary consider draining abscess
[2017-05-21 11:47] LABS: ALBUMIN 3.1 g/dl (3.4-5.0); ANION GAP 3 (8-16); CALCIUM 9.2 mg/dL (8.5-10.1); CO2 32 mmol/L (21-32); CREATININE 0.6 mg/dL (0.7-1.3); GLUCOSE,RANDOM 92 mg/dL (74-106); SGPT/ALT 130 U/L (12-78)
[2017-05-21 11:49] LABS: ALK PHOS 177 U/L (45-117); BILIRUBIN,TOTAL 0.3 mg/dL (0.2-1.0); SGOT/AST 42 U/L (15-37); TOT PROT 7.5 g/dl (6.4-8.2)
--- NOTE | 2017-05-21 12:10 | PN ---
Progress Note, Physician History of Present Illness: pulmonary alert,feeling better,less cough,afebrile - Current Medication List Current Medications: Active Medications Albuterol/Ipratropium (Duoneb -) 1 amp NEB QIDR [facility] Last Admin: 05/21/17 11:26 Dose: 1 amp Vancomycin HCl 1,250 mg/ (Dextrose) 250 mls @ 250 mls/hr IVPB DAILY@1800 [facility] PRN Reason: Protocol Last Admin: 05/20/17 17:12 Dose: 250 mls/hr Sodium Chloride (Normal Saline -) 200 ml IV Q20M PRN PRN Reason: MAP<65mm Hg OR SBP <90 Last Admin: 05/14/17 01:19 Dose: 200 ml - Objective Vital Signs: Vital Signs Temperature 97.3 F L 05/21/17 05:00 Pulse Rate 75 05/21/17 05:00 Respiratory Rate 20 05/21/17 05:00 Blood Pressure 129/70 05/21/17 05:00 O2 Sat by Pulse Oximetry (%) 95 05/20/17 21:00 Constitutional: Yes: Well Nourished, Calm Eyes: Yes: WNL HENT: Yes: WNL Neck: Yes: WNL Cardiovascular: Yes: Regular Rate and Rhythm, S1, S2 Respiratory: Yes: Diminished (diminished bs r base) Gastrointestinal: Yes: Normal Bowel Sounds, Soft Extremities: Yes: WNL Edema: No Labs: CBC, BMP 05/20/17 11:31 05/21/17 10:45 INR, PTT INR 1.12 (0.82-1.09) 05/20/17 11:31 Assessment/Plan Problem List - Problems (1) Pneumonia Code(s): J18.9 - PNEUMONIA, UNSPECIFIED ORGANISM Qualifiers: Pneumonia type: due to unspecified organism Laterality: bilateral Lung location: lower lobe of lung Qualified Code(s): J18.9 - Pneumonia, unspecified organism (2) SIRS (systemic inflammatory response syndrome) Code(s): R65.10 - SIRS OF NON-INFECTIOUS ORIGIN W/O ACUTE ORGAN DYSFUNCTION Assessment/Plan RLL PEUMONIA LIVER LESION WT LOSS antibiotics as per id pt is clinically improving afebrile,wbc as per IR unable to drain any fluid Echinococcus antibody serology pending DR WRIGHT
--- NOTE | 2017-05-21 16:11 | PN ---
Progress Note (short form) - Note Progress Note: ID Consult dictated 36 y/o [place] male, previously healthy, admitted with 4-6w hx R pleuritic cp, cough, nightsweats, wt loss. Imaging reveals RLL pneumonia, calcified lesion in R lobe of liver. Clinically improved on zosyn/ vancomycin with defervescence and normalization of WBC. Infectious w/u unrevealing. May be dealing with two unrelated processes ( pneumonia, liver lesion) Await echinococcal and amebic serology HIV testing(pt consents) Urine histo ag Continue zosyn 7-10d --> po Augmentin Follow up imaging. Percutaneous bx of liver lesion with specimens for cytology, routine/AFB/Fungal c/s Please re-consult as needed. Dr Glynn to follow.
--- NOTE | 2017-05-21 16:32 | CONS ---
DATE OF CONSULTATION: DATE OF DICTATION: 05/21/2017 The patient is seen in second opinion. The patient is a 36-year-old previously healthy [place] male who was admitted to the hospital on May 13, 2017, with a 4-6 week history of right-sided pleuritic type chest pain, cough, night sweats and weight loss. He was found on imaging studies to have a right lower lobe infiltrate and an incidental finding of a calcified lesion in the right lobe of the liver. He was empirically treated with Zosyn and vancomycin with clinical improvement. The patient defervesced and his white blood cell count normalized. His workup was unrevealing. Sputum cultures revealed normal carmelita. Sputum AFB were negative, as were PPD and QuantiFERON-TB. According to the note, the patient had previously been treated as an outpatient with Zithromax and Levaquin without improvement. He denied any ill contacts. No known TB exposure. He states he tested HIV negative in July. The patient is originally from [facility] and has been living in the [facility] for the past 14 years. He works in construction. He denies any ill contacts at work. He is a nonsmoker, nondrinker. No history of illicit drug use. No history of blood transfusions or intravenous drug use. The patient served in the in [facility] and spent 6 months in [place] years ago. No recent travel. PAST MEDICAL HISTORY: Negative. ALLERGIES: No known allergies. LABORATORY DATA: White count 7.4, hematocrit 39.3, platelet count 300, BUN 11, creatinine 0.6, total bilirubin 0.3, alkaline phosphatase 177, AST 42. CAT scan and MRI reviewed with the radiologist shows a dense right lower lobe infiltrate as well as calcified circular lesion in the right lobe of the liver. PHYSICAL EXAMINATION: General: The patient is awake and alert. He has been not acutely toxic-appearing. Vital Signs: Temperature 98.3, blood pressure 118/74, pulse 69 and regular, respirations 20 per minute. HEENT: Sclerae are anicteric. Neck: Supple. No palpable nodes. Heart: Sounds S1-S2. Lungs: A few crepitations at the right base. Left lung clear. Abdomen: Soft. No right upper quadrant tenderness. No mass, rebound, or rigidity. Extremities: Negative for edema. No rash noted. IMPRESSION: A 36-year-old [place] male previously healthy admitted with a 4-6 week history of right-sided pleuritic type chest pain, cough, night sweats, weight loss. Imaging revealed a right lower lobe pneumonia and a calcified lesion in the right lobe of the liver. He has clinically improved on empiric Zosyn and vancomycin. Infectious disease workup unrevealing. We may be dealing with 2 unrelated processes, one subacute pneumonia and one chronic calcified liver lesion. Obtain echinococcal and amoebic serology, HIV testing (patient consents), urine histoplasma antigen. Continue Zosyn. Would complete a 7-10 day course, followed by oral Augmentin. He will require a followup imaging to assess improvement of his infiltrate and any change in the liver lesion. Would request IR evaluation for percutaneous biopsy of the liver lesion with specimens for cytology, routine fungal and AFB cultures. Thank you for the kind referral. TONY HARTMAN M.D. [id number]
--- NOTE | 2017-05-21 16:47 | CONSULT ---
Consult - text type - Consultation Consultation Note: patient doing well can switch abx to po augmentin wbc normal will stop vanco give augmentin for another 5 days rest continue as per primary will sign off the case
[2017-05-21] MEDS ORDERED: PIPERACILLIN/TAZOB 3.375 GM/50 ML PRE-DOCKED IVPB ONE (21:45)
[2017-05-22] MEDS: ALBUTEROL SO4 2.5/IPRATROPIUM 0.5 INH SOL 3 ML VIAL.NEB. NEB SCH (06:55)
[2017-05-22 09:22] LABS: HIV 1 & 2 AB NEGATIVE; HIV 1 AGp24 NEGATIVE
--- NOTE | 2017-05-22 10:39 | PN ---
Progress Note, Physician Chief Complaint: Infectious Disease Follow up: History of Present Illness: Pt seen and examined. Reports reviewed. Patient is a 36 y.o. male admitted with cough, reported night sweats and weight loss. Found to have a RLL pneumonia/ SIRS with improvement of leukocytosis on IV antibiotics. MRI abdomen revealed liver abscesses, possible infected hematoma with extension to lung base. Currently patient is afebrile and and without acute distress. States he feels "something" in Rt flank region. - Current Medication List Current Medications: Active Medications Albuterol/Ipratropium (Duoneb -) 1 amp NEB QIDR ELIZABETH Last Admin: 05/22/17 06:55 Dose: 1 amp Sodium Chloride (Normal Saline -) 200 ml IV Q20M PRN PRN Reason: MAP<65mm Hg OR SBP <90 Last Admin: 05/14/17 01:19 Dose: 200 ml - Objective Vital Signs: Vital Signs Temperature 97.8 F 05/22/17 06:00 Pulse Rate 84 05/22/17 06:00 Respiratory Rate 16 05/22/17 06:00 Blood Pressure 108/72 05/22/17 06:00 O2 Sat by Pulse Oximetry (%) 97 05/21/17 21:00 Constitutional: Yes: No Distress, Calm Eyes: Yes: WNL HENT: Yes: WNL Neck: Yes: Supple, Trachea Midline Cardiovascular: Yes: Regular Rate and Rhythm Respiratory: Yes: Diminished (Rt lung base) Gastrointestinal: Yes: Normal Bowel Sounds, Soft Genitourinary: Yes: WNL Musculoskeletal: Yes: WNL Extremities: Yes: WNL Neurological: Yes: WNL, Alert, Oriented Psychiatric: Yes: WNL Labs: CBC, BMP 05/20/17 11:31 05/21/17 10:45 INR, PTT INR 1.12 (0.82-1.09) 05/20/17 11:31 AST- 42, ALT- 130, Alk phos - 177 HIV Ab - negative Hepatitis C Ab -negative Hepatitis B Ag/Ab - negative Sputum Cultures - no growth Sputum AFB smears negative Blood Cultures no growth - ....Imaging Cat Scan: Report Reviewed MRI: Report Reviewed (5x 3.6x 3.6 cm liver collection with extracapsular ext to Rt lung base) Problem List - Problems (1) Liver abscess Code(s): K75.0 - ABSCESS OF LIVER (2) Pneumonia Code(s): J18.9 - PNEUMONIA, UNSPECIFIED ORGANISM Qualifiers: Pneumonia type: due to unspecified organism Laterality: bilateral Lung location: lower lobe of lung Qualified Code(s): J18.9 - Pneumonia, unspecified organism (3) SIRS (systemic inflammatory response syndrome) Code(s): R65.10 - SIRS OF NON-INFECTIOUS ORIGIN W/O ACUTE ORGAN DYSFUNCTION Assessment/Plan - case d/w Dr. Salas, pt clinically appears to be improving No drainable collection as per radiology - for d/c home on oral antibiotics with follow up with PMD as outpatient
[2017-05-22] MEDS ORDERED: PIPERACILLIN/TAZOB 4.5 GM 4.5 GM in DEXTROSE 5%-WATER - 100 ML IVPB SCH (11:15)
[2017-05-22] MEDS ORDERED: PIPERACILLIN/TAZOB 4.5 GM/100 ML PREMIX BAG IVPB SCH (11:15)
[2017-05-22 11:30] VITALS: BP 127/84; PULSE 81; TEMP 97.9
--- NOTE | 2017-05-22 11:43 | DS ---
Physical Examination Vital Signs: Vital Signs Temperature 97.9 F 05/22/17 10:00 Pulse Rate 81 05/22/17 10:00 Respiratory Rate 18 05/22/17 10:00 Blood Pressure 127/84 05/22/17 10:00 O2 Sat by Pulse Oximetry (%) 97 05/21/17 21:00 Labs: CBC, BMP 05/20/17 11:31 05/21/17 10:45 Discharge Summary Reason For Visit: PNEUMONIA SIRS Current Active Problems DVT prophylaxis (Acute) Liver abscess (Acute) Pneumonia (Acute) SIRS (systemic inflammatory response syndrome) (Acute) Hospital Course: This is a 36 y/o man with no significant PMHx. Who presents to the ED with fever , cough and congestion x 1 month. Patient also reports having night sweats and weight loss. He reports being treated by his PCP with Azithromycin and recently completed Levaquin with no resolve. Patient denies recent travel or exposure to sick contacts. He resides in a apartment with his S.O. in a monogamous heterosexual relationship. Patient reports having a PPD 2 weeks ago for work- result negative. Patient reports being tested for HIV routine earlier this year - negative. He is unsure about his Hep B vaccine status. Patient denies CP, AP, N/V/D, constipation, dysuria (1) SIRS (systemic inflammatory response syndrome)--Sepsis--unspecified organism Assessment/Plan: - r/o Pneumonia vs TB vs Neoplasm - AFEBRILE NOW - Blood Cultures-NEG - Urine Culture-NEG - Sputum Culture - AFB negative - Isolation Precautions- airborne--dc - PPD test NEGATIVE - Zosyn, Vancomycin, NS bolus given in ED, will continue - Appreciate ID Consult - Repeat CBC, BMP in am - Monitor vitals Code(s): R65.10 - SIRS OF NON-INFECTIOUS ORIGIN W/O ACUTE ORGAN DYSFUNCTION (2) Pneumonia Assessment/Plan: - Failed Outpatient Therapy - Will treat for CAP - Chest Xray image- patchy bilateral infiltrates - Given Zosyn, Vancomycin in ED, will continue for broad spectrum coverage- pending BC reports - Appreciate ID and Pulm consults - O2 - Duonebs - Urine Legionella - Monitor vitals -REPEAT CT NOTED--ID AND PULM FOLLOW UP --INFILTRATING PROCESS INVADING DIAPHRAGM --EXTENDING TO RUQ--NO COLLECTION --D/W DR BRILL -CONTINUE WITH ABX --id consult--2nd opinion -NOTED--ID FOLLOW UP NOTED--PO ABX AND FOLLOW UP WITH DR RINCON -DEPENDS ON FOLLOW UP IMAGING TO DETERMINE IF BIOPSY NEEDED Code(s): J18.9 - PNEUMONIA, UNSPECIFIED ORGANISM Qualifiers: Pneumonia type: due to unspecified organism Laterality: bilateral Lung location: lower lobe of lung Qualified Code(s): J18.9 - Pneumonia, unspecified organism (3) DVT prophylaxis Assessment/Plan: - OOB - Heparin SQ Code(s): AHB2422 - (4) Liver Lesion Assessment/Plan: - MRI RESULTS D/W RADIOLOGIST--CONNECTING WITH LUNG INFECTION-NOT AN ABSCESS --GI CONSULT NOTED --id consult (5) Abnormal Liver Enzymes Assessment/Plan: -IMPROVING - Maybe from zosyn -repeat -dc tylenol D/W PT IF ANY WORSENING OF SYMPTOMS OR ANY FEVER TO RETURN TO ER Condition: Improved - Instructions Diet, Activity, Other Instructions: FURTHER TESTING AND CAT SCAN NEEDED OUTPATIENT Referrals: Julien Rincon MD [Primary Care Provider] - 1 Week Disposition: HOME - Home Medications Comprehensive Discharge Medication List: Ambulatory Orders Cefuroxime Axetil [Ceftin -] 500 mg PO Q12H #28 tablet 05/22/17 Ipratropium/Albuterol Sulfate [Combivent Respimat Inhal [place]] 4 gm IH QID #1 aer.w.adap 05/22/17
[2017-05-22 11:58] LABS: BASOPHIL 1.1 % (0-2.0); EOSINOPHIL 3.6 % (0-4.5); MCH 28.5 pg (25.7-33.7); MEAN CELL VOLUME 86.3 fl (80-96); MEAN PLT VOLUME 7.8 fl (7.5-11.1); NEUTROPHILS 68.9 % (42.8-82.8); PLATELET COUNT 350 K/MM3 (134-434); RDW 12.5 % (11.9-15.9); WHITE BLOOD COUNT 9.8 K/mm3 (4.0-10.0)
[2017-05-22] MEDS ORDERED: VANCOMYCIN 1,250 MG in DEXTROSE 5%-WATER - 250 ML IVPB SCH (12:00)
[2017-05-22 12:32] LABS: ALBUMIN 3.4 g/dl (3.4-5.0); ALK PHOS 183 U/L (45-117); ANION GAP 6 (8-16); BILIRUBIN,TOTAL 0.3 mg/dL (0.2-1.0); CALCIUM 9.7 mg/dL (8.5-10.1); CO2 30 mmol/L (21-32); CREATININE 0.7 mg/dL (0.7-1.3); GLUCOSE,RANDOM 83 mg/dL (74-106); SGOT/AST 32 U/L (15-37); SGPT/ALT 120 U/L (12-78); TOT PROT 8.2 g/dl (6.4-8.2)
[2017-05-22 13:51] LABS: ERYTHROCYTE SEDIMENTATION RATE 90 mm/hr (0-10)
== END 2017-05-22 14:17 | disposition home or self-care (01) | DRG 720 ==
LOC: JER 20:43 → JERBED 05-14 02:36 → UNDOADMIN 05-14 02:53 → JERBED 05-14 02:53 → J4S 05-14 12:33
PROVIDERS: ADMIT Family Medicine; ATTEND Family Medicine
DX: A41.9 Sepsis, unspecified organism (principal); J18.9 Pneumonia, unspecified organism; K75.0 Abscess of liver; R63.4 Abnormal weight loss; Z68.30 Body mass index [BMI] 30.0-30.9, adult; Z51.89 Encounter for other specified aftercare
CPT/HCPCS: 36415; 36600; 71010-TC; 71250-TC; 74183-TC; 80053; 80074; 82105; 82550; 82803; 83605; 84484; 85025; 85610; 85651; 85730; 86140; 86480; 86682; 86753; 86803; 87040; 87070; 87086; 87116; 87205; 87206; 87389; 87899; 90670; 94640; 99283-25; A9576; G0480; J1644

== ENCOUNTER 2019-03-28 02:37 | Emergency (ER) | payer SELFPAY ==
[2019-03-28 02:41] VITALS: BP 136/92; PULSE 78; TEMP 97.5; BMI 35.2
--- NOTE | 2019-03-28 05:38 | PDOC ---
*Physical Exam - Vital Signs Last Vital Signs Temp Pulse Resp BP Pulse Ox 97.5 F L 78 18 136/92 97 03/28/19 02:39 03/28/19 02:39 03/28/19 02:39 03/28/19 02:39 03/28/19 02:39 Medical Decision Making - Medical Decision Making 03/28/19 05:38 Patient seen by the advanced practice provider under my direct supervision. Ancillary testing reviewed as necessary. I agree with plan as outlined by the advanced practice provider. Discharge - Discharge Information Problems reviewed: Yes Clinical Impression/Diagnosis: Poison candace dermatitis Disposition: HOME - Follow up/Referral Referrals: Julien Roberts MD [Primary Care Provider] - - Patient Discharge Instructions - Post Discharge Activity
--- NOTE | 2019-03-28 05:57 | PDOC ---
History of Present Illness - General Chief Complaint: Poison [place],Poison Gerardo Exposure Stated Complaint: RASH Time Seen by Provider: 03/28/19 05:36 History Source: Patient - History of Present Illness Initial Comments: 03/28/19 05:52 38-year-old male complaining of poison gerardo exposure while cutting wood few days ago. Now with increased amount of rash to the neck body arms and legs. Patient reports that he has been itching. Denies past medical history. Past History - Past Medical History Allergies/Adverse Reactions: Allergies Allergy/AdvReac Type Severity Reaction Status Date / Time No Known Allergies Allergy Verified 03/28/19 02:40 Home Medications: Ambulatory Orders Cefuroxime Axetil [Ceftin -] 500 mg PO Q12H #28 tablet 05/22/17 Ipratropium/Albuterol Sulfate [Combivent Respimat Inhal [place]] 4 gm IH QID #1 aer.w.adap 05/22/17 Methylprednisolone [Medrol Dose Simeon] 4 mg PO ASDIR #21 tablet 03/28/19 Pramoxine HCl/Calamine [Calamine Medicated Lotion] 1 applic TP BID #1 lotion 07/16 COPD: No - Immunization History Immunization Up to Date: No - Psycho Social/Smoking Cessation Hx Smoking History: Never smoked Have you smoked in the past 12 months: No Hx Alcohol Use: Yes Drug/Substance Use Hx: No Substance Use Type: None Hx Substance Use Treatment: No Review of Systems - Review of Systems Able to Perform ROS?: Yes Is the patient limited Maori proficient: No Constitutional: No: Symptoms Reported, See HPI, Chills, Diaphoresis, Fever, Loss of Appetite, Malaise, Night Sweats, Weakness, Weight Stable, Unintentional Wgt. Loss, Unexplained wgt Loss, Other *Physical Exam - Vital Signs Last Vital Signs Temp Pulse Resp BP Pulse Ox 97.5 F L 78 18 136/92 97 03/28/19 02:39 03/28/19 02:39 03/28/19 02:39 03/28/19 02:39 03/28/19 02:39 - Physical Exam General Appearance: Yes: Appropriately Dressed Extremity: positive: Normal Capillary Refill, Other (macularpapular rash to body , neck, arms) Integumentary: positive: Normal Color, Dry, Warm Neurologic: positive: Fully Oriented, Alert ED Progress Note - Progress Note Progress Note: 03/28/19 05:53 Poison GERARDO dermatitis P prednisone benadryl calamine IVarest Discharge - Discharge Information Problems reviewed: Yes Clinical Impression/Diagnosis: Poison gerardo dermatitis Disposition: HOME - Additional Discharge Information Prescriptions: Methylprednisolone [Medrol Dose Simeon] 4 mg PO ASDIR #21 tablet Pramoxine HCl/Calamine [Calamine Medicated Lotion] 1 applic TP BID #1 lotion - Follow up/Referral Referrals: Julien Roberts MD [Primary Care Provider] - - Patient Discharge Instructions Patient Printed Discharge Instructions: Poison Gerardo, Poison [place], Poison [place] Additional Instructions: use calamine lotion as prescribed. You may Also try IVAREST lotion take medrol dose pack as prescribed. you may take benadryl for itching follow up with your doctor as soon as possible. - Post Discharge Activity Work/Back to School Note: Back to Work
== END 2019-03-28 06:08 | disposition home or self-care (01) ==
LOC: JER 02:37
DX: L23.7 Allergic contact dermatitis due to plants, except food (principal)
CPT/HCPCS: 99281-25